=== PATIENT | male | born 1950 | race Caucasian/White ===

== ENCOUNTER 2017-09-14 09:57 | Inpatient (IN) | payer OTHER ==
[~2017-09-14] VITALS: Ht 165.1 cm; Wt 107.0 kg
[~2017-09-14 09:57] MED LIST: ADVAIR DISKU 11 UNIT INH; ALTACE10 M1 PO; ALTACE5 MG PO; AMIODARONE HYD200 MG PO; AMOX-CLAV 875-1 EACH PO; ASPIR 8181 MG PO; CARVEDILOL12.5 MG PO; CRESTOR20 MG PO; FUROSEMIDE40 M1 PO; LASIX20 M1 PO; MASON NATURAL1200 MG PO; METHIMAZOLE5 MG PO; MUCINEX FAST-M177 M3 PO; MULTIVITAMIN1 TAB PO; PREDNISONE10 M2 PO; SPIRONOLACTONE25 MG PO; TAMIFLU 75MG75 MG PO; VALSARTAN80 M1 PO; WELCHOL3.75 GM/Pa PO; ZETIA10 M1 PO; ZITHROMAX250 M2 PO
--- NOTE | 2017-09-14 10:21 | ED DYSPNEA/ASTHMA COMPLAINT ---
History of Present Illness General Chief Complaint: General Adult Stated Complaint: WEAKNESS, HX OF COPD PER PT Source: patient, family, old records Exam Limitations: no limitations Vital Signs & Intake/Output Vital Signs & Intake/Output Vital Signs Date Time Temp Pulse Resp B/P B/P Pulse O2 O2 Flow FiO2 Mean Ox Delivery Rate 09/14 1134 98.4 92 18 116/68 92 Room Air 09/14 1036 94 Room Air 09/14 1002 97.1 70 18 111/74 94 Room Air Allergies Coded Allergies: NO KNOWN ALLERGIES (07/15/12) Reconcile Medications AMIODARONE HCL (Amiodarone Hydrochloride) 200 MG TABLET 1 TAB PO DAILY HEART (Reported) Amoxicillin/Clavulanate Potass (Amox-Clav 875-125 MG Tablet) 1 EACH TABLET 875 MG PO Q12 PNEUMONIA Aspirin (Ecotrin) 81 MG TABLET.DR 1 TAB PO DAILY HEART (Reported) Carvedilol 12.5 MG TABLET 1 TAB PO BID HEART (Reported) Ezetimibe (Zetia) 10 MG TABLET 1 TAB PO DAILY cholesterol (Reported) Fluticasone-Salmeterol (Advair 100-50 Diskus) 100 MCG-50 MCG/DOSE BLST.W.DEV 1 PUF INH BID ASTHMA (Reported) Furosemide (Lasix) 20 MG TABLET 1 TAB PO DAILY FLUID OVERLOAD Please get a repat BEP on 08/30/15, and if renal function is normal Please resume your home dose of 40mg of Lasix. Methimazole 5 MG TABLET 1 TAB PO 2XW THYROID (Reported) Multivitamin (Multiple Vitamins) 1 EACH TABLET 1 TAB PO DAILY SUPPLEMENT ( Reported) OMEGA-3 FATTY ACIDS/FISH OIL (Fish Oil 1,200 MG Softgel) 360 MG-1,200 MG CAPSULE 1 SGL PO TID SUPPLEMENT (Reported) Prednisone 10 MG TABLET 1 TAB PO AD COPD Please take 4 tablets daily on 08/27/15 Please take 3 tablets daily from 08/28/15 through 08/29/15 Please take 2 tablets daily from 08/30/15 through 08/31/15 Please take 1 tablet daily from 09/01/15 through 09/02/15 and then stop Rosuvastatin Calcium (Crestor) 20 MG TABLET 1 TAB PO QPM CHOLESTEROL ( Reported) Spironolactone 25 MG TABLET 1 TAB PO DAILY DIRUETIC (Reported) Valsartan 80 MG TABLET 80 MG PO DAILY HTN (Reported) Triage Note: PT STATES THAT HE HAS HISTORY OF COPD AND THAT HE HAS BEEN FEELING WEAK AND SOB FOR OVER 2 WEEKS, PT IS ON STEROIDS THAT HE STARTED ON SATURDAY, DENIES SOB AT THIS TIME, STATES USUALLY JUST ON EXERTION. ALSO STATES THAT HE WOKE WITH LOW BACK PAIN Triage Nurses Notes Reviewed? yes HPI: Patient went to see his primary care physician earlier this week for increasing shortness of breath and dyspnea on exertion. Patient uses CPAP at night. Patient noticed that he normally sleeps on one pillow however his required 2 pillows. He has had a nonproductive cough as well as anorexia. Patient does have a history of COPD as well as CHF. Patient was started on prednisone but is not feeling any better. He denies any chest pain or palpitations. There is no nausea or vomiting. There are no fevers or chills. Past History Travel History Traveled to [place] past 21 day No Medical History Any Pertinent Medical History? see below for history Neurological: NONE EENT: NONE Cardiovascular: CAD, CHF, hypertension, AICD PACEMAKER HLD Respiratory: asthma, bronchitis, COPD, PNA Gastrointestinal: diverticulitis Hepatic: NONE Renal: NONE Musculoskeletal: NONE Psychiatric: NONE Endocrine: hyperthyroidism Blood Disorders: NONE Cancer(s): NONE History of MRSA: No History of VRE: No History of CDIFF: No Surgical History Surgical History: CABG Psychosocial History Who do you live with Spouse Services at Home None What is your primary language Irish Tobacco Use: Quit >30 days ago ETOH Use: denies use Illicit Drug Use: denies illicit drug use Family History Family History, If Any: MOTHER FH: [place] (myocardial infarction) SISTER FH: [place] (my[place] infarction) Hx Contributory? No Review of Systems Review of Systems Constitutional: Reports: no symptoms. EENTM: Reports: no symptoms. Respiratory: Reports: see HPI, orthopnea, short of breath, wheezing. Cardiovascular: Reports: no symptoms. GI: Reports: see HPI. Genitourinary: Reports: no symptoms. Musculoskeletal: Reports: no symptoms. Skin: Reports: no symptoms. Neurological/Psychological: Reports: no symptoms. Hematologic/Endocrine: Reports: no symptoms. Immunologic/Allergic: Reports: no symptoms. All Other Systems: Reviewed and Negative Physical Exam Physical Exam General Appearance: well developed/nourished, alert, awake, anxious, moderate distress Head: atraumatic, normal appearance Eyes: Bilateral: PERRL, EOMI. Ears, Nose, Throat: normal pharynx, normal ENT inspection, hearing grossly normal Neck: normal inspection, supple, full range of motion, JVD Respiratory: decreased breath sounds, respiratory distress Cardiovascular: regular rate/rhythm, normal peripheral pulses, systolic murmur Gastrointestinal: normal bowel sounds, soft, non-tender Extremities: normal capillary refill, pedal edema Neurologic/Psych: no motor/sensory deficits, awake, alert, oriented x 3, normal mood/affect Skin: intact, normal color, warm/dry Core Measures ACS in differential dx? Yes CVA/TIA Diagnosis No Sepsis Present: No Sepsis Focused Exam Completed? No Progress Differential Diagnosis: AMI, bronchitis, CHF, COPD, pulmonary embolism, pneumonia, pneumothorax Plan of Care: Orders Procedure Date/time Status Heart Healthy Diet 09/14 D Active ED Holding Orders 09/14 1203 Active Admit to inpatient 09/14 1203 Active Vital Signs 09/14 1203 Active Code Status 09/14 1203 Active ARTERIAL BLOOD GAS (GEN) 09/14 1020 Active Telemetry/Vault Mechanic 09/14 1020 Active URINALYSIS 09/14 1020 Complete TROPONIN LEVEL 09/14 1020 Complete COMPREHENSIVE METABOLIC PANEL 09/14 1020 Complete CBC WITHOUT DIFFERENTIAL 09/14 1020 Complete B-TYPE NATRIURETIC PEP (BNP) 09/14 1020 Complete EKG 09/14 1020 Active Current Medications Sig/Marcelo Start time Last Medication Dose Stop Time Status Admin Furosemide 40 MG ONCE ONE 09/14 1215 AC (Lasix) 09/14 1216 Methylprednisolone 125 MG ONCE ONE 09/14 1215 AC (Solu Medrol) 09/14 1216 Laboratory Tests 09/14/17 1129: Urine Color YEL, Urine Clarity CLEAR, Urine pH 6.5, Ur Specific [place] 1.010, Urine Protein NEG, Urine Ketones NEG, Urine Nitrite NEG, Urine Bilirubin NEG, Urine Urobilinogen 1.0, Ur Leukocyte Esterase NEG, Ur Microscopic EXAM NOT REQUIRED, Urine Hemoglobin NEG, Urine Glucose NEG 09/14/17 1026: Anion Gap 14, Estimated GFR > 60, BUN/Creatinine Ratio 32.5 H, Glucose 131 H, Calcium 9.1, Total Bilirubin 1.8 H, AST 34, ALT 50, Alkaline Phosphatase 46, Troponin I 0.08, Rcg-I-[place] Pept 6580 H, Total Protein 7.2, Albumin 4.2, Globulin 3.0, Albumin/Globulin Ratio 1.4, CBC w Diff NO MAN DIFF REQ, RBC 5.16, MCV 75.6 L, MCH 23.8 L, MCHC 31.5 L, RDW 16.1 H, MPV 9.5, Gran % 82.6 H, Lymphocytes % 7.4 L, Monocytes % 9.3, Eosinophils % 0.5, Basophils % 0.2, Absolute Granulocytes 8.5 H, Absolute Lymphocytes 0.8 L, Absolute Monocytes 1.0 H, Absolute Eosinophils 0.1, Absolute Basophils 0 Diagnostic Imaging: Viewed by Me: Radiology Read. Discussed w/RAD: Radiology Read. CXR Impression: PATIENT: ELE HAIR PRESENT AGE: 66 PATIENT ACCOUNT NO: [id number] : 50 LOCATION: [facility] ORDERING PHYSICIAN: James Obando MD SERVICE DATE: 09/14/17 EXAM TYPE: RAD - XRY- PORTABLE CHEST XRAY EXAMINATION: XR PORTABLE CHEST CLINICAL INFORMATION: Shortness of breath. COMPARISON: Chest done on 01/10/2017. TECHNIQUE: Portable 85 degrees upright frontal view of the chest was obtained. FINDINGS: The cardiac mediastinal silhouette is at least moderately enlarged, similar to prior study. There is evidence of pulmonary venous hypertension present. Few ill-defined superimposed patchy airspace disease is also noted best visualized within the right hemithorax, new since prior study, may represent superimposed infiltrate, edema or combination thereof. Possibility of lung nodules cannot be entirely excluded. The AICD device appear intact. There is no pleural effusion present. IMPRESSION: 1. Evidence of pulmonary venous hypertension and at least moderate enlargement of the cardiomediastinal silhouette. 2. Superimposed ill-defined patchy airspace disease is noted best seen within the right hemithorax, may represent edema versus pneumonia or combination thereof. 3. No radiographic evidence of pleural effusion. DICTATED BY: Maria L Hull MD DATE/TIME DICTATED :09/14/171050 FOURTH MATE:KALEN DATE/TIME TRANSCRIBED:09/14/171050 CONFIDENTIAL, DO NOT COPY WITHOUT APPROPRIATE AUTHORIZATION. < Electronically signed in Other Vendor System> SIGNED BY: Maria L Hull MD 09/14/171057 Initial ED EKG: pacemaker rhythm Prior EKG: unchanged Rhythm Strip: PACED Departure Departure Disposition: STILL A PATIENT Condition: Stable Clinical Impression Primary Impression: CHF (congestive heart failure) Secondary Impressions: COPD (chronic obstructive pulmonary disease) Referrals: Mary OWUSU,Ted Gtz (PCP/Family) Departure Forms: Customer Survey General Discharge Information Admission Note Spoke With: Wesley OWUSU,Dina Gtz Documentation of Exam: Documentation of any treatments & extenuating circumstances including Concerns Regarding Discharge (functional status, medication knowledge or non-compliance, living conditions, etc.) that warrant an admission rather than observation: [IV diuresis, IV steroids, telemetry monitoring, serial enzymes, cardiology consultation, pulmonary consultation, CPAP at night.] Critical Care Note Critical Care Note Critical Care Time: non-applicable
[2017-09-14 10:34] LABS: ABSOLUTE BASOPHIL COUNT 0 /CUMM (0.0-0.2); ABSOLUTE EOSINOPHIL COUNT 0.1 /CUMM (0.0-0.7); ABSOLUTE GRANULOCYTE CT 8.5 /CUMM (1.4-6.5); ABSOLUTE LYMPH COUNT 0.8 /CUMM (1.2-3.4); BASOPHIL % 0.2 % (0.0-2.0); EOSINOPHIL % 0.5 % (0-5); GRANULOCYTE % 82.6 % (42.2-75.2); MEAN CORPUSCULAR HGB 23.8 PG (27.0-31.0); MEAN CORPUSCULAR HGB CONC 31.5 G/DL (33.0-37.0); MEAN CORPUSCULAR VOLUME 75.6 FL (80.0-94.0); MEAN PLATELET VOLUME 9.5 FL (7.4-10.4); PLATELET COUNT 173 /CUMM (130-400); RBC DISTRIBUTION WIDTH 16.1 % (11.5-14.5); RED BLOOD CELL CT 5.16 /CUMM (4.70-6.10); WHITE BLOOD CELL COUNT 10.3 /CUMM (4.8-10.8)
--- NOTE | 2017-09-14 10:58 | RADIOLOGY REPORT ---
EXAMINATION: XR PORTABLE CHEST CLINICAL INFORMATION: Shortness of breath. COMPARISON: Chest done on 01/10/2017. TECHNIQUE: Portable 85 degrees upright frontal view of the chest was obtained. FINDINGS: The cardiac mediastinal silhouette is at least moderately enlarged, similar to prior study. There is evidence of pulmonary venous hypertension present. Few ill-defined superimposed patchy airspace disease is also noted best visualized within the right hemithorax, new since prior study, may represent superimposed infiltrate, edema or combination thereof. Possibility of lung nodules cannot be entirely excluded. The AICD device appear intact. There is no pleural effusion present. IMPRESSION: 1. Evidence of pulmonary venous hypertension and at least moderate enlargement of the cardiomediastinal silhouette. 2. Superimposed ill-defined patchy airspace disease is noted best seen within the right hemithorax, may represent edema versus pneumonia or combination thereof. 3. No radiographic evidence of pleural effusion.
--- NOTE | 2017-09-14 12:21 | History & Physical ---
Sylvia OWUSU,[facility] 09/14/17 1211: General Information and HPI MD Statement: I have seen and personally examined ELE HAIR and documented this H&P. The patient is a 66 year old M who presented with a patient stated chief complaint of weakness. Source of Information: patient, family, old records Exam Limitations: no limitations, unable to give history History of Present Illness: Mr Hair is a 66-year-old gentleman with a PMH of CAD s/p CABG, AICD , stent placement, HTN, HLD, asthma, diverticulosis, JOSÉ MIGUEL with nocturnal CPAP, hypothyroidism who presented to the ED this morning complaining of dyspnea. The patient reports that early this week he visited the office of Dr Hernandez (his PCP) and was started on prednisone. He reports over the course of the week, he did not get much relief and subsequently this morning when he woke up, and felt he was "unable to breath". He has also been unable to lay flat. Requires two pillows to sleep at night. He was brought in by his . The patient also reports over the last few days, he felt increasingly weak, and has had a more difficult time climbing stairs. He reports that he finds it difficult to climb the stairs at home. He also complains of lower exteremity edema, more pronounced on the left leg, reports that a doppler of his lower extremity was recently done to rule out a DVT. At the time of our clinical interaction the patient endorsed back pain. Rated at a 7/10 in severity. Described as Sharp. Back pain started one week ago. He also endorses decreased PO intake in an effort to reduce weight. Last evening he had a steak for dinner with canned potatoes. PCP: Dr Hernandez. Hotel Valet Attendant: Dr Ibarra. Was supposed to see Dr Weinstein this week due to COPD. Allergies/Medications Allergies: Coded Allergies: cat dander (SNEEZING, COUGHING, WHEEZING 09/14/17) Home Med list Albuterol Sulfate (Ventolin Hfa) 90 MCG HFA.AER.AD 2 PUF INH AD PRN COPD ( Reported) Amiodarone (Cordarone) 200 MG TAB 1 TAB PO DAILY HEART (Reported) Aspirin (Ecotrin*) 81 MG TABLET.DR 1 TAB PO DAILY HEART/BLOOD (Reported) Carvedilol 12.5 MG TABLET 1 TAB PO BID HEART/BP (Reported) Cholecalciferol (Vitamin D3) (Vitamin D) 1,000 UNIT TABLET 1 TAB PO BID SUPPLEMENT (Reported) Ergocalciferol (Vitamin D2) (Vitamin D2) 50,000 UNIT CAPSULE 1 CAP PO Q2W SUPPLEMENT (Reported) Ezetimibe (Zetia) 10 MG TABLET 1 TAB PO QPM CHOLESTEROL (Reported) Fish Oil/Dha/Epa (Fish Oil 1,200 MG Fish Oil) 1,200 MG-144 MG-216 MG CAPSULE 1 CAP PO TID SUPPLEMENT (Reported) Fluticasone/Salmeterol (Advair 250-50 Diskus) 250 MCG-50 MCG/DOSE BLST.W.DEV 1 PUF INH BID COPD (Reported) Furosemide (Lasix) 40 MG TABLET 1 TAB PO QAM DIURETIC (Reported) Methimazole 10 MG TABLET 0.5 TAB PO QTUES THYROID (Reported) Multivits,Ca,Min/Iron/FA/Lycop (Centrum Men's Tablet) 8 MG IRON-200 MCG-600 MCG TABLET 1 TAB PO DAILY SUPPLEMENT (Reported) Rosuvastatin Calcium (Crestor) 20 MG TABLET 1 TAB PO QPM CHOLESTEROL ( Reported) Sacubitril/Valsartan (Entresto 49 MG-51 MG Tablet) 49 MG-51 MG TABLET 1 TAB PO BID HEART (Reported) Spironolactone (Aldactone) 25 MG TABLET 1 TAB PO QAM DIURETIC (Reported) Tiotropium [place] (Spiriva Respimat) 2.5 MCG/ACTUATION MIST.INHAL 2 PUFF INH QAM COPD (Reported) Compliance With Home Meds: GOOD Past History Travel History Traveled to [place] past 21 day No Medical History Neurological: NONE EENT: NONE Cardiovascular: CAD, CHF, hypertension, AICD PACEMAKER HLD Respiratory: asthma, bronchitis, COPD, PNA Gastrointestinal: diverticulitis Hepatic: NONE Renal: NONE Musculoskeletal: NONE Psychiatric: NONE Endocrine: hyperthyroidism Blood Disorders: NONE Cancer(s): NONE History of MRSA: No History of VRE: No History of CDIFF: No Surgical History Surgical History: CABG Past Family/Social History Family History Relations & Conditions if any MOTHER, . FH: [place] (myocardial infarction) SISTER FH: [place] (myocardial infarction) Psychosocial History Where do you live? Home Who Do You Live With? spouse Services at Home: None Primary Language: Croatian Smoking Status: Former Smoker ETOH Use: occasional use Illicit Drug Use: denies illicit drug use Functional Ability ADLs Independent: dressing, eating, toileting, bathing. Ambulation: independent IADLs Independent: shopping, housework, finances, food prep, telephone, transportation , medication admin. 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 Exam & Diagnostic Data Last 24 Hrs of Vital Signs/I&O Vital Signs Date Time Temp Pulse Resp B/P B/P Pulse O2 O2 Flow FiO2 Mean Ox Delivery Rate 09/14 1134 98.4 92 18 116/68 92 Room Air 09/14 1036 94 Room Air 09/14 1002 97.1 70 18 111/74 94 Room Air Intake & Output 09/14 1600 09/14 0800 09/14 0000 Intake Total 0 Output Total Balance 0 Intake, Oral 0 Patient 105.233 kg Weight Physical Exam General Appearance Oriented X3, Dry mucous membranes Skin No Rashes, Dry Mucous Membranes Skin Temp/Moisture Exam: Warm/Dry Cardiovascular Regular Rate, Normal S1, Normal S2 Lungs Normal Air Movement Abdomen Normal Bowel Sounds, Soft, No Tenderness, Distended Neurological Normal Speech, Strength at 5/5 X4 Ext Extremities Edema 1+ L>R Vascular Normal Pulses Sepsis Peripheral Pulse Location: Dorsalis Pedis Last 24 Hrs of Labs/Davie: Laboratory Tests 09/14/17 1129: Urine Color YEL, Urine Clarity CLEAR, Urine pH 6.5, Ur Specific [place] 1.010, Urine Protein NEG, Urine Ketones NEG, Urine Nitrite NEG, Urine Bilirubin NEG, Urine Urobilinogen 1.0, Ur Leukocyte Esterase NEG, Ur Microscopic EXAM NOT REQUIRED, Urine Hemoglobin NEG, Urine Glucose NEG 09/14/17 1026: Anion Gap 14, Estimated GFR > 60, BUN/Creatinine Ratio 32.5 H, Glucose 131 H, Calcium 9.1, Total Bilirubin 1.8 H, AST 34, ALT 50, Alkaline Phosphatase 46, Troponin I 0.08, Dmv-I-Jbkwvgwsokw Pept 6580 H, Total Protein 7.2, Albumin 4.2, Globulin 3.0, Albumin/Globulin Ratio 1.4, CBC w Diff NO MAN DIFF REQ, RBC 5.16, MCV 75.6 L, MCH 23.8 L, MCHC 31.5 L, RDW 16.1 H, MPV 9.5, Gran % 82.6 H, Lymphocytes % 7.4 L, Monocytes % 9.3, Eosinophils % 0.5, Basophils % 0.2, Absolute Granulocytes 8.5 H, Absolute Lymphocytes 0.8 L, Absolute Monocytes 1.0 H, Absolute Eosinophils 0.1, Absolute Basophils 0 Diagnostic Data EKG Results Paced Rhythm Rate 64 DE 188 QTC 438 CXR Results SERVICE DATE: 09/14/17 EXAM TYPE: RAD - XRY-PORTABLE CHEST XRAY EXAMINATION: XR PORTABLE CHEST CLINICAL INFORMATION: Shortness of breath. COMPARISON: Chest done on 01/10/2017. TECHNIQUE: Portable 85 degrees upright frontal view of the chest was obtained. FINDINGS: The cardiac mediastinal silhouette is at least moderately enlarged, similar to prior study. There is evidence of pulmonary venous hypertension present. Few ill-defined superimposed patchy airspace disease is also noted best visualized within the right hemithorax, new since prior study, may represent superimposed infiltrate, edema or combination thereof. Possibility of lung nodules cannot be entirely excluded. The AICD device appear intact. There is no pleural effusion present. IMPRESSION: 1. Evidence of pulmonary venous hypertension and at least moderate enlargement of the cardiomediastinal silhouette. 2. Superimposed ill-defined patchy airspace disease is noted best seen within the right hemithorax, may represent edema versus pneumonia or combination thereof. 3. No radiographic evidence of pleural effusion. DICTATED BY: Maria L Hull MD Assessment/Plan Assessment: Mr Hair is a 66-year-old gentleman with a PMH of CAD s/p CABG, AICD , stent placement, HTN, HLD, asthma, diverticulosis, JOSÉ MIGUEL with nocturnal CPAP, hypothyroidism who presented to the ED this morning complaining of dyspnea. His dyspnea is likely attributed to exacerbation of COPD. We must however maintain CHF exacerbation in our differential owing to elevated proBNP and an increased amount of salt in his diet. Below is a problem list and plan of care Problem List: #Acute hypoxemic and hypercarbic respiratory failure #COPD/asthma/obstructive sleep apnea with exacerbation #History of VT, on chronic amiodarone therapy #CHF with a low ejection fraction of 25%. #History of hyperthyroidism. #Hyperbilirubinemia #Unilateral Lower Extremity Edema (left) Admit patient to telemetry service. Serial troponins and EKG to rule out ACS. Obtained formal cardiology consultation. Repeat echocardiogram last one on record 2015. Monitor strict daily weights and Input/Output PO Lasix 40 mg Daily IV methylprednisone 40 mg q8 PO Azithromycin Trc Nebs/Incentive Spirometer Consider formal pulmonology consult in am Doppler Lower Extremity r/o DVT Continue Home medications CBC/BEP/T Bili (if remains elevated may consider imaging) in am Pain pathway PT consult Dvt PPX Patient is a full code. As Ranked By This Provider Problem List: 1. Respiratory failure 2. COPD (chronic obstructive pulmonary disease) 3. COPD exacerbation Core Measures/Misc (11/11) Acute Coronary Syndrome ACS Diagnosis: No Congestive Heart Failure Congestive Heart Failure Diagnosis Yes Cerebrovascular Accident CVA/TIA Diagnosis: No VTE (View Protocol) VTE Risk Factors Age>40 No Mechanical VTE Prophylaxis d/t N/A MechProphylax Ordered No VTE Pharm Prophylaxis d/t NA PharmProphylax ordered Sepsis (View protocol) Sepsis Present: No If YES complete Sepsis Event Note If YES complete Sepsis Event Note Resident Review Statement Resident Statement: examined this patient Dina Olson MD 09/14/17 1542: Core Measures/Misc (11/11) Sepsis (View protocol) If YES complete Sepsis Event Note If YES complete Sepsis Event Note Attending MD Review Statement Attending Statement Attending MD Statement: examined this patient, discuss w/resident/PA/STEM ROLLER OPERATOR, agreed w/resident/PA/STEM ROLLER OPERATOR, reviewed EMR data (avail), reviewed images Attending Assessment/Plan: 66-year-old male past medical history of COPD a combined obstructive and restrictive lung disease on PFTs done last year, chronic systolic heart failure with an EF of 20-25% most recently in 2016 and AICD, on Entresto as an outpatient. He is here with shortness of breath. He saw his PCP as an outpatient and was prescribed a course of oral steroids but her shortness of breath and dry cough have not abated. He appears to be having an acute COPD exacerbation with a mild component of acute CHF. We'll bring him into telemetry treat him with IV steroids, short course of oral antibiotics for the possibility of bacterial bronchitis. We'll continue his cardiac regimen he already got IV Lasix in the ER and I think we can see how he does. Will call cardiology to see him, put him on DVT prophylaxis and follow-up
[2017-09-14] MEDS ORDERED: ADVAIR 250-501 EACH INH (12:23)
[2017-09-14] MEDS ORDERED: SPIRIVA RESPIMAT4 GM INH (12:24)
[2017-09-14] MEDS ORDERED: VENTOLIN HFA18 GM INH (12:24)
[2017-09-14] MEDS ORDERED: ENTRESTO 49 MG1 EACH PO (12:25)
[2017-09-14] MEDS ORDERED: VITAMIN D250000 UNIT PO (12:25)
[2017-09-14] MEDS ORDERED: CRESTOR20 M2 PO (12:25)
[2017-09-14] MEDS ORDERED: AMIODARONE HCL200 M1 PO (12:25)
[2017-09-14] MEDS ORDERED: ZETIA10 M1 PO (12:26)
[2017-09-14] MEDS ORDERED: ALDACTONE25 MG PO (12:26)
[2017-09-14] MEDS ORDERED: CARVEDILOL12.5 M1 PO (12:26)
[2017-09-14] MEDS ORDERED: CENTRUM MEN'S1 EACH PO (12:27)
[2017-09-14] MEDS ORDERED: LASIX40 M1 PO (12:27)
[2017-09-14] MEDS ORDERED: METHIMAZOLE10 M1 PO (12:27)
[2017-09-14] MEDS ORDERED: ASPIRIN EC81 M1 PO (12:28)
[2017-09-14] MEDS ORDERED: VITAMIN D1000 UNIT PO (12:29)
[2017-09-14] MEDS ORDERED: FISH OIL 1,2001 EACH PO (12:29)
--- NOTE | 2017-09-14 14:45 | ULTRASOUND REPORT ---
EXAMINATION: US TRIPLEX LOWER EXTREMITY, LEFT CLINICAL INFORMATION: Left lower extremity edema. COMPARISON: None TECHNIQUE: Color-flow triplex imaging with spectral analysis and compression Doppler were performed on the lower extremity. FINDINGS: Respiratory variation, normal compression and augmented flow are noted throughout the lower extremity. The visualized common femoral vein, superficial femoral vein, profunda femoral vein, popliteal vein and midcalf peroneal and posterior tibial venous segments show no evidence of deep venous thrombosis. Evaluation of the calf vein is technically limited due to presence of calf edema. There is no Ratliff's cyst. IMPRESSION: No evidence of deep venous thrombosis involving the left lower extremity.
[2017-09-14 15:07] VITALS: BP 124/96
--- NOTE | 2017-09-14 15:40 | Admission Certification ---
Admission Certification Certification Statement - As attending physician, I certify that at the time of - admission, based on clinical presentation, severity of - symptoms, need for further diagnostic testing and - therapeutic interventions, and risk of adverse outcomes - without in-hospital treatment, in my clinical assessment, - this patient requires an acute hospital stay for a minimum - of two nights or longer. I have also considered psychsocial - factors such as support system, advanced age, financial - issues, cognitive issues, and failed out-patient treatments, - past re-admission history, safety of patient, and lack of - compliance as applicable. Specific rationale supporting this admission is: Patient with acute shortness of breath CHF and COPD exacerbation
--- NOTE | 2017-09-14 19:41 | Cons- Cardiology ---
General Information and HPI Consulting Request Date of Consult: 09/14/17 Requested By: Rogerio OWUSU,Luis Fernando Aguilera Reason for Consult: Positive troponin I. Source of Information: patient, family, old records Exam Limitations: poor historian History of Present Illness: Mr. Noam Hadley is a 66-year-old male with a history of obesity, remote tobacco use, COPD, asthma, obstructive sleep apnea on CPAP, hypertension, dyslipidemia, "borderline" diabetes mellitus, hyperthyroidism, coronary artery disease status post CABG 1998, and LV dysfunction s/p AICD who presented to the ED this a.m. with complaints of progressive shortness of breath, intermittently productive cough, lower extremity weakness and edema (left greater than right), orthopnea, decreased by mouth intake, etc. Symptoms began a month or so ago, but got progressively worse over the past week despite him being placed on prednisone earlier this week by his PCP. He denies any fever, chills, etc. Allergies/Medications Allergies: Coded Allergies: cat dander (SNEEZING, COUGHING, WHEEZING 09/14/17) Home Med List: Albuterol Sulfate (Ventolin Hfa) 90 MCG HFA.AER.AD 2 PUF INH AD PRN COPD ( Reported) Amiodarone (Cordarone) 200 MG TAB 1 TAB PO DAILY HEART (Reported) Aspirin (Ecotrin*) 81 MG TABLET.DR 1 TAB PO DAILY HEART/BLOOD (Reported) Carvedilol 12.5 MG TABLET 1 TAB PO BID HEART/BP (Reported) Cholecalciferol (Vitamin D3) (Vitamin D) 1,000 UNIT TABLET 1 TAB PO BID SUPPLEMENT (Reported) Ergocalciferol (Vitamin D2) (Vitamin D2) 50,000 UNIT CAPSULE 1 CAP PO Q2W SUPPLEMENT (Reported) Ezetimibe (Zetia) 10 MG TABLET 1 TAB PO QPM CHOLESTEROL (Reported) Fish Oil/Dha/Epa (Fish Oil 1,200 MG Fish Oil) 1,200 MG-144 MG-216 MG CAPSULE 1 CAP PO TID SUPPLEMENT (Reported) Fluticasone/Salmeterol (Advair 250-50 Diskus) 250 MCG-50 MCG/DOSE BLST.W.DEV 1 PUF INH BID COPD (Reported) Furosemide (Lasix) 40 MG TABLET 1 TAB PO QAM DIURETIC (Reported) Methimazole 10 MG TABLET 0.5 TAB PO QTUES THYROID (Reported) Multivits,Ca,Min/Iron/FA/Lycop (Centrum Men's Tablet) 8 MG IRON-200 MCG-600 MCG TABLET 1 TAB PO DAILY SUPPLEMENT (Reported) Rosuvastatin Calcium (Crestor) 20 MG TABLET 1 TAB PO QPM CHOLESTEROL ( Reported) Sacubitril/Valsartan (Entresto 49 MG-51 MG Tablet) 49 MG-51 MG TABLET 1 TAB PO BID HEART (Reported) Spironolactone (Aldactone) 25 MG TABLET 1 TAB PO QAM DIURETIC (Reported) Tiotropium [place] (Spiriva Respimat) 2.5 MCG/ACTUATION MIST.INHAL 2 PUFF INH QAM COPD (Reported) Past History Travel History Traveled to [place] past 21 day No Medical History Blood Transfusion Hx: Yes Neurological: NONE EENT: NONE Cardiovascular: CAD, CHF, hypertension, AICD PACEMAKER HLD Respiratory: asthma, bronchitis, COPD, PNA Gastrointestinal: diverticulitis Hepatic: NONE Renal: NONE Musculoskeletal: ARTHRITIS Psychiatric: NONE Endocrine: hyperthyroidism Blood Disorders: NONE Cancer(s): NONE Surgical History Surgical History: CABG Family History Relations & Conditions If Any: MOTHER, . FH: ID (myocardial infarction) SISTER FH: ID (myocardial infarction) Psychosocial History Where Do You Live? Home Who Do You Live With? spouse Services at Home: None Primary Language: Cambodian Smoking Status: Former Smoker ETOH Use: occasional use Illicit Drug Use: denies illicit drug use Functional Ability ADLs Independent: dressing, eating, toileting, bathing. Ambulation: independent IADLs Independent: shopping, housework, finances, food prep, telephone, transportation , medication admin. 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 [employer] Exam & Diagnostic Data Vital Signs and I&O Vital Signs Date Time Temp Pulse Resp B/P B/P Pulse O2 O2 Flow FiO2 Mean Ox Delivery Rate 09/14 1710 Room Air Room Air 09/14 1507 97.8 67 20 124/96 92 Room Air 09/14 1309 97.4 80 18 127/78 91 Room Air 09/14 1134 98.4 92 18 116/68 92 Room Air 09/14 1036 94 Room Air 09/14 1002 97.1 70 18 111/74 94 Room Air Intake & Output 09/14 1600 09/14 0800 09/14 0000 09/13 1600 09/13 0809/13 0000 Intake Total 0 Output Total 275 Balance -275 Intake, Oral 0 Output, Urine 275 Patient 231 lb Weight Weight Bed scale Measurement Method Physical Exam: Well-developed, overweight male in no acute distress. Vital signs: See above. HEENT: Normocephalic, atraumatic, EOMI, slightly dry mucous membranes. Neck: No JVD no bruits. Lungs: Decreased breath sounds. Heart: S1, S2 with a grade 2/6 systolic murmur. No gallop or rub appreciated. Abdomen: Soft, nontender, positive bowel sounds. Extremities: 1+ edema L>R. Diagnostic Data EKG Results 09/14/2017 Properly functioning electronic pacemaker, atrial sensed ventricular paced rhythm. CXR Results 09/14/2017: 1. Evidence of pulmonary venous hypertension and at least moderate enlargement of the cardiomediastinal silhouette. 2. Superimposed ill-defined patchy airspace disease is noted best seen within the right hemithorax, may represent edema versus pneumonia or combination thereof. 3. No radiographic evidence of pleural effusion. Other Results Left lower extremity ultrasound 09/14/2017 No evidence of deep venous thrombosis involving the left lower extremity. Assessment/Plan Assessment/Plan [id number]-o-[id number]-m w/ hx of obesity, remote tob use, COPD, asthma, JOSÉ MIGUEL on CPAP, HTN, HLD , borderline DM, hyperthyroidism, CAD s/p CABG 1998, LV dysfunction, VT s/p AICD who presented to the ED this a.m. w/ c/o progressive SOB, intermittently productive cough, LE weakness and edema (left greater than right), orthopnea, decreased by mouth intake, etc. and evidence of acute hypoxemic hypercapnic respiratory failure 2/2/ COPD, asthma exacerbation w/ a probable component of acute on chronic systolic HF w/ ill-defined patchy airspace disease within right hemithorax on CXR, elevated NT-PRO BNP, high normal WBC count with left shift, elevated BUN/creatinine, etc. He received IV furosemide 40 mg 1 at 12:15 p.m. on 09/14/2017. Recommendations: * Admit to telemetry, follow-up troponins, follow-up ECG in a.m. * Strict inputs/outputs, daily weights, etc. * Echocardiogram to reassess LV systolic/diastolic function, RV function, degree of LVH, valvular regurgitation, PA pressure, etc. * Oxygen/TRC, steroids, antimicrobial therapy, pulmonary consultation. * Continue outpatient cardiac medications. * Follow-up CXR in AM. * Check magnesium, glycosylated hemoglobin A1c, free T4, TSH, etc. * DVT prophylaxis. Consult Acknowledgment - Thank you for your consult request.
[2017-09-14 23:18] VITALS: BP 114/86
[2017-09-15 06:27] VITALS: BP 98/64
--- NOTE | 2017-09-15 08:07 | PN- Att Addend ---
Attending Addendum Attending Brief Note Patient seen and examined. He is feeling markedly better today and is off the oxygen. On exam temperature is 97.7 blood pressure is 98/64 pulse rate of 54 and breathing at 16-18. Awake alert oriented, lungs have decreased breath sounds with very fine crackles, heart is S1-S2 regular with a soft systolic murmur, abdomen is soft and he has 1+ pedal edema left greater than right BUN is up to 45 the rest of the labs are pending. He is a 66-year-old male with COPD, chronic diastolic heart failure with a low EF and an AICD who is here with acute CHF exacerbation and COPD exacerbation. He got 1 dose of IV Lasix yesterday and now we have him on the p.o. Lasix. We have him on the IV steroids as he was on oral steroids given to him by Dr. Hernandez as an outpatient. I will continue the IV steroids today. If he does well and is ambulating without any need for oxygen, we can then switch him to p.o. prednisone. His pressure is on the low side but he is awake alert mentating and making urine and my gut feeling is that given his systolic heart failure, he tends to run a low blood pressure.
[2017-09-15 08:13] LABS: ABSOLUTE BASOPHIL COUNT 0 /CUMM (0.0-0.2); ABSOLUTE EOSINOPHIL COUNT 0 /CUMM (0.0-0.7); ABSOLUTE GRANULOCYTE CT 8.6 /CUMM (1.4-6.5); ABSOLUTE LYMPH COUNT 0.6 /CUMM (1.2-3.4); ABSOLUTE MONOCYTE COUNT 0.3 /CUMM (0.10-0.60); BASOPHIL % 0 % (0.0-2.0); EOSINOPHIL % 0 % (0-5); GRANULOCYTE % 90.8 % (42.2-75.2); HEMATOCRIT 35.8 % (42-52); MEAN CORPUSCULAR HGB 24.2 PG (27.0-31.0); MEAN CORPUSCULAR HGB CONC 32.2 G/DL (33.0-37.0); MEAN CORPUSCULAR VOLUME 75.2 FL (80.0-94.0); RBC DISTRIBUTION WIDTH 16.4 % (11.5-14.5); RED BLOOD CELL CT 4.76 /CUMM (4.70-6.10); WHITE BLOOD CELL COUNT 9.4 /CUMM (4.8-10.8)
--- NOTE | 2017-09-15 08:27 | PN- Housestaff ---
Subjective Follow-up For: Acute hypoxemic and hypercarbic respiratory failure COPD, CHF Subjective: Patient seen resting comfortably in the bed. Complaining of weakness, shortness of breath and orthopnea, as well as unilateral edema of the lower left extremity. Patient also is complaining of back pain, he says is due to newly diagnosed osteoarthritis. Not currently on oxygen. Review of Systems Constitutional: Reports: weakness. Denies: chills, fever. Cardiovascular: Reports: orthopena. Denies: chest pain, palpitations. Respiratory: Reports: orthopnea, short of breath. Denies: cough, wheezing. Gastrointestinal: Denies: abdominal pain, nausea, vomiting. Objective Last 24 Hrs of Vital Signs/I&O Vital Signs Date Time Temp Pulse Resp B/P B/P Pulse O2 O2 Flow FiO2 Mean Ox Delivery Rate 09/15 0627 97.7 54 18 98/64 94 09/15 0619 80 93 09/15 0324 56 95 09/15 0114 56 92 09/15 0000 Room Air 09/14 2318 98.6 63 20 114/86 94 09/14 2139 95 09/14 2038 66 114/80 09/14 1710 Room Air Room Air 09/14 1507 97.8 67 20 124/96 92 Room Air 09/14 1309 97.4 80 18 127/78 91 Room Air 09/14 1134 98.4 92 18 116/68 92 Room Air 09/14 1036 94 Room Air 09/14 1002 97.1 70 18 111/74 94 Room Air Intake & Output 09/15 1600 09/15 0800 09/15 0000 Intake Total 240 490 Output Total 400 300 Balance -160 190 Intake, IV 250 Intake, Oral 240 240 Output, Urine 400 300 Patient 107.048 kg Weight Physical Exam General Appearance: Alert, Oriented X3, Cooperative, No Acute Distress HEENT: Atraumatic, PERRLA, EOMI Neck: Supple, No JVD Cardiovascular: Regular Rate, Normal S1, Normal S2, No Murmurs Lungs: Clear to Auscultation Abdomen: Soft, No Tenderness Current Medications: Current Medications Sig/Marcelo Start time Last Medication Dose Route Stop Time Status Admin Acetaminophen 1,000 MG Q12P PRN 09/14 1900 AC IV Acetaminophen 325 MG Q6P PRN 09/14 1845 AC PO Acetaminophen 650 MG Q4P PRN 09/14 1800 DC 09/14 PO 1805 Acetaminophen 0 .STK-MED ONE 09/14 1404 DC IV Acetaminophen 1,000 MG ONCE ONE 09/14 1400 DC 09/14 IV 09/14 1401 1407 Albuterol Sulfate 3 ML Q4-PRN PRN 09/14 1715 AC INH Albuterol Sulfate 2 PUF Q4-6 PRN PRN 09/14 1645 AC INH Amiodarone HCl 200 MG DAILY 09/15 0900 AC PO Aspirin Buffered 81 MG DAILY 09/14 1253 AC 09/15 PO 0746 Atorvastatin Calcium 80 MG 1700 09/14 1700 AC 09/14 PO 1609 Azithromycin 250 MG Q24H 09/15 1800 AC PO Azithromycin 500 MG ONCE ONE 09/14 1415 DC 09/14 Sodium Chloride 250 ML IV 09/14 1514 1805 Budesonide/ 1 PUF BID 09/14 2100 DC Formoterol Fumarate INH Budesonide/ 2 PUF BID 09/14 2100 AC 09/15 Formoterol Fumarate INH 0746 Carvedilol 12.5 MG BID 09/14 2100 AC 09/14 PO 2038 Cholecalciferol 1,000 IU BID 09/14 2100 AC 09/15 PO 0746 Enoxaparin Sodium 40 MG DAILY@1500 09/14 1530 AC 09/14 SC 1610 Ezetimibe 10 MG QPM 09/14 2100 AC 09/14 PO 2038 Furosemide 40 MG QAM 09/15 0900 AC 09/15 PO 0746 Furosemide 40 MG ONCE ONE 09/14 1215 DC 09/14 IV 09/14 1216 1214 Furosemide 0 .STK-MED ONE 09/14 1207 DC IV Methimazole 5 MG QTUES 09/17 0900 AC PO Methylprednisolone 40 MG Q8 09/14 2200 AC 09/15 IV 0611 Methylprednisolone 125 MG ONCE ONE 09/14 1215 DC 09/14 IV 09/14 1216 1214 Methylprednisolone 0 .STK-MED ONE 09/14 1207 DC .ROUTE Oxycodone/ 1 TAB Q12P PRN 09/14 1900 AC Acetaminophen PO Sacubitril/Valsartan 1 TAB BID 09/14 2100 AC 09/15 PO 0804 Spironolactone 25 MG QAM 09/15 0900 AC PO Tiotropium [place] 1 PUF QAM 09/15 0900 AC 09/15 INH 0747 Last 24 Hrs of Lab/Davie Results Last 24 Hrs of Labs/Mics: Laboratory Tests 09/15/17 0605: Anion Gap 14, Estimated GFR > 60, BUN/Creatinine Ratio 40.9 H, Total Bilirubin 0.9, CBC w Diff Pending, WBC Pending, RBC Pending, Hgb Pending, Hct Pending, MCV Pending, MCH Pending, MCHC Pending, RDW Pending, Plt Count Pending, MPV Pending 09/14/17 2215: Troponin I 0.05 09/14/17 1625: Troponin I 0.07 09/14/17 1129: Urine Color YEL, Urine Clarity CLEAR, Urine pH 6.5, Ur Specific [place] 1.010, Urine Protein NEG, Urine Ketones NEG, Urine Nitrite NEG, Urine Bilirubin NEG, Urine Urobilinogen 1.0, Ur Leukocyte Esterase NEG, Ur Microscopic EXAM NOT REQUIRED, Urine Hemoglobin NEG, Urine Glucose NEG 09/14/17 1026: Anion Gap 14, Estimated GFR > 60, BUN/Creatinine Ratio 32.5 H, Glucose 131 H, Hemoglobin A1c Pending, Calcium 9.1, Magnesium 2.3, Total Bilirubin 1.8 H, AST 34, ALT 50, Alkaline Phosphatase 46, Troponin I 0.08, Rdq-U-Xrybdrqdndh Pept 6580 H, Total Protein 7.2, Albumin 4.2, Globulin 3.0, Albumin/Globulin Ratio 1.4, TSH 4.610 H, Free T4 1.73, CBC w Diff NO MAN DIFF REQ, RBC 5.16, MCV 75.6 L, MCH 23.8 L, MCHC 31.5 L, RDW 16.1 H, MPV 9.5, Gran % 82.6 H, Lymphocytes % 7.4 L, Monocytes % 9.3, Eosinophils % 0.5, Basophils % 0.2, Absolute Granulocytes 8.5 H, Absolute Lymphocytes 0.8 L, Absolute Monocytes 1.0 H, Absolute Eosinophils 0.1, Absolute Basophils 0 Microbiology 09/14 140 LOWER RESP: Respiratory Culture - COLB 09/14 1401 LOWER RESP: Gram Stain - COLB Assessment/Plan Assessment: 66-year-old male with history of COPD and asthma, not on home O2, JOSÉ MIGUEL on overnight CPAP, and cardiac history including CHF, CABG, AICD, stents with hypertension and hyperlipidemia. Presented with chief complaint of weakness, shortness of breath. 1. COPD exacerbation --Spiriva daily --Proventil q4 prn --Ventolin 2 puff prn --Methylprednisone 40mg IV q8, switch to PO steroid once saturations improve with ambulation 2. Acute CHF exacerbation --PO Lasix --Spironolactone 25mg po daily --Entresto BID --Carvedilol 12.5mg BID Problem List: 1. COPD (chronic obstructive pulmonary disease) 2. CHF (congestive heart failure) 3. COPD exacerbation 4. Hyperlipidemia 5. Acute respiratory failure with hypoxia and hypercarbia Pain Ratin Pain Location: back Pain Goal: Pain 4 or less Pain Plan: per pathway Tomorrow's Labs & Rationales: BEP & Mg
[2017-09-15 09:04] LABS: PLATELET COUNT 159 /CUMM (130-400)
[2017-09-15 14:43] VITALS: BP 98/56
--- NOTE | 2017-09-15 16:32 | PN- Cardiology ---
Subjective Subjective: No complaints and feels improved. Objective Vital Signs and I&Os Vital Signs Date Time Temp Pulse Resp B/P B/P Pulse O2 O2 Flow FiO2 Mean Ox Delivery Rate 09/15 1443 97.4 62 20 98/56 95 Room Air 09/15 1301 60 102/54 09/15 1136 92 Room Air Room Air 09/15 0627 97.7 54 18 98/64 94 09/15 0619 80 93 09/15 0324 56 95 09/15 0114 56 92 09/15 0000 Room Air 09/14 2318 98.6 63 20 114/86 94 09/14 2139 95 09/14 2038 66 114/80 09/14 1710 Room Air Room Air Intake & Output 09/15 1600 09/15 0800 09/15 0000 09/14 1600 09/14 0809/14 0000 Intake Total 420 240 740 0 Output Total 750 400 300 275 Balance -330 -160 440 -275 Intake, IV 20 500 Intake, Oral 400 240 240 0 Output, Urine 750 400 300 275 Patient 236 lb 231 lb Weight Weight Bed scale Measurement Method Physical Exam: Well-developed, overweight male in no acute distress. Vital signs: See above. HEENT: Normocephalic, atraumatic, EOMI, slightly dry mucous membranes. Neck: No JVD no bruits. Lungs: Decreased breath sounds. Heart: S1, S2 with a grade 2/6 systolic murmur. No gallop or rub appreciated. Abdomen: Soft, nontender, positive bowel sounds. Extremities: 1+ edema L>R. Current Medications: Current Medications Sig/Marcelo Start time Last Medication Dose Route Stop Time Status Admin Acetaminophen 1,000 MG Q12P PRN 09/14 1900 AC IV Acetaminophen 325 MG Q6P PRN 09/14 1845 AC PO Acetaminophen 650 MG Q4P PRN 09/14 1800 DC 09/14 PO 1805 Albuterol Sulfate 3 ML Q4-PRN PRN 09/14 171 AC INH Albuterol Sulfate 2 PUF Q4-6 PRN PRN 09/14 1645 AC INH Amiodarone HCl 200 MG 5PM 09/15 1700 AC PO Amiodarone HCl 200 MG DAILY 09/15 0900 DC PO Aspirin Buffered 81 MG DAILY 09/14 1253 AC 09/15 PO 0746 Atorvastatin Calcium 80 MG 1700 09/14 1700 AC 09/14 PO 1609 Azithromycin 250 MG Q24H 09/15 1800 AC PO Budesonide/ 1 PUF BID 09/14 2100 DC Formoterol Fumarate INH Budesonide/ 2 PUF BID 09/14 2100 AC 09/15 Formoterol Fumarate INH 0746 Carvedilol 12.5 MG BID 09/14 2100 AC 09/15 PO 1301 Cholecalciferol 1,000 IU BID 09/14 2100 AC 09/15 PO 0746 Enoxaparin Sodium 40 MG DAILY@1600 09/15 1600 AC 09/15 SC 1559 Enoxaparin Sodium 40 MG DAILY@1500 09/14 1530 DC 09/14 SC 1610 Ezetimibe 10 MG QPM 09/14 2100 AC 09/14 PO 2038 Furosemide 40 MG QAM 09/15 0900 AC 09/15 PO 0746 Methimazole 5 MG QTUES 09/17 0900 AC PO Methylprednisolone 40 MG Q8 09/14 2200 AC 09/15 IV 1301 Oxycodone/ 1 TAB Q12P PRN 09/14 1900 AC 09/15 Acetaminophen PO 1516 Sacubitril/Valsartan 1 TAB BID 09/14 2100 AC 09/15 PO 0804 Spironolactone 25 MG QAM 09/15 0900 AC 09/15 PO 1152 Tiotropium [place] 1 PUF QAM 09/15 0900 AC 09/15 INH 0747 Assessment/Plan Assessment/Plan 66-y-o-w-m w/ hx of obesity, remote tob use, COPD, asthma, JOSÉ MIGUEL on CPAP, HTN, HLD , borderline DM, hyperthyroidism, CAD s/p CABG 1998, LV dysfunction, [place] s/p AICD who presented to the ED on 09/14/2017 a.m. w/ c/o progressive SOB, intermittently productive cough, LE weakness and edema (left greater than right) , orthopnea, decreased by mouth intake, etc. & evidence of acute hypoxemic hypercapnic resp failure 2/2/ COPD, asthma exacerbation w/ a probable component of acute on chronic systolic HF w/ ill-defined patchy airspace disease w/i R hemithorax on CXR, elevated NT-PRO BNP, high normal WBC count w/ L shift, elevated BUN/creat, "negative" troponins, etc. Recommendations: * Continue on telemetry. * Strict inputs/outputs, daily weights, etc. * Follow-up on echocardiogram to reassess LV systolic/diastolic function, RV function, degree of LVH, valvular regurgitation, PA pressure, etc. * Oxygen/TRC, steroids, antimicrobial therapy, pulmonary consultation. * Continue outpatient cardiac medications. * Repeat CXR in AM. * DVT prophylaxis. Continue telemetry? Yes
--- NOTE | 2017-09-15 20:32 | RADIOLOGY REPORT ---
EXAMINATION: XR CHEST CLINICAL INFORMATION: Shortness of breath. COMPARISON: Chest x-ray 09/14/2017 TECHNIQUE: 2 views of the chest were obtained. FINDINGS: Heart size is enlarged. No change position of pacemaker leads in right atrium, right ventricle coronary sinus. Status post median sternotomy. There is no acute abnormality. Linear scar or subsegmental atelectasis present at the left lung base. The lungs are otherwise clear. There is no pleural effusion. There is no pulmonary vascular congestion. There is multilevel degenerative spondylosis of the dorsal spine. IMPRESSION: No acute abnormality of the chest.
[2017-09-15 21:55] VITALS: BP 104/58
[2017-09-16 06:49] VITALS: BP 104/58
--- NOTE | 2017-09-16 07:08 | PN- Housestaff ---
Vivek Banda 09/16/17 0708: Subjective Follow-up For: Acute hypoxemic and hypercarbic respiratory failure COPD CHF-systolic dysfunction Tele-Events Since Last Visit: Dual-chamber pacing, 60, 0.12 Subjective: Patient seen and examined at bedside this morning. Claims that he feels much better this morning. Patient was breathing on room air this morning saturating well at 95%. He denied any chest pain, palpitations, shortness of breath. Claims that he has not had a bowel movement in 3 days. Will give a bowel regimen and follow-up. Says he has continuous lower left extremity edema. Has been ruled out for DVT. Review of Systems Constitutional: Denies: see HPI. Objective Last 24 Hrs of Vital Signs/I&O Vital Signs Date Time Temp Pulse Resp B/P B/P Pulse O2 O2 Flow FiO2 Mean Ox Delivery Rate 09/16 0756 104/58 09/16 0649 97.5 57 20 104/58 95 09/16 0000 CPAP 09/15 2155 98.0 62 20 104/58 93 Room Air 09/15 2133 62 104/59 09/15 1712 60 108/60 09/15 1443 97.4 62 20 98/56 95 Room Air 09/15 1301 60 102/54 09/15 1136 92 Room Air Room Air Intake & Output 09/16 1600 09/16 0800 09/16 0000 Intake Total 10 890 Output Total 800 100 Balance -790 790 Intake, IV 10 10 Intake, Oral 880 Number 0 Bowel Movements Output, Urine 800 100 Patient 236 lb Weight Physical Exam General Appearance: Alert, Oriented X3, Cooperative, No Acute Distress HEENT: PERRLA, EOMI, Mucous Membr. moist/pink Cardiovascular: Normal S1, Normal S2, AICD placed Lungs: Clear to Auscultation, Normal Air Movement Neurological: Normal Speech, Strength at 5/5 X4 Ext, Sensation Intact, Cranial Nerves 3-12 NL Extremities: Left lower extremity edema +2 pitting Vascular: Normal Pulses, Pulses Symmetrical Current Medications: Current Medications Sig/Marcelo Start time Last Medication Dose Route Stop Time Status Admin Acetaminophen 650 MG Q4P PRN 09/16 1115 AC PO Acetaminophen 325 MG ONCE ONE 09/16 1015 DC 09/16 PO 09/16 1016 1022 Acetaminophen 1,000 MG Q12P PRN 09/14 1900 AC IV Acetaminophen 325 MG Q6P PRN 09/14 1845 AC 09/16 PO 0930 Albuterol Sulfate 3 ML Q4-PRN PRN 09/14 1715 AC INH Albuterol Sulfate 2 PUF Q4-6 PRN PRN 09/14 1645 AC INH Amiodarone HCl 200 MG 5PM 09/15 1700 AC 09/15 PO 1712 Amiodarone HCl 200 MG DAILY 09/15 0900 DC PO Aspirin Buffered 81 MG DAILY 09/14 1253 AC 09/16 PO 0756 Atorvastatin Calcium 80 MG 1700 09/14 1700 AC 09/15 PO 1712 Azithromycin 250 MG Q24H 09/15 1800 AC 09/15 PO 1712 Budesonide/ 2 PUF BID 09/14 2100 AC 09/16 Formoterol Fumarate INH 0757 Carvedilol 12.5 MG BID 09/14 2100 AC 09/16 PO 0756 Cholecalciferol 1,000 IU BID 09/14 2100 AC 09/16 PO 0756 Enoxaparin Sodium 40 MG DAILY@1600 09/15 1600 AC 09/15 SC 1559 Enoxaparin Sodium 40 MG DAILY@1500 09/14 1530 DC 09/14 SC 1610 Ezetimibe 10 MG QPM 09/14 2100 AC 09/15 PO 2134 Furosemide 40 MG QAM 09/15 0900 AC 09/16 PO 0756 Methimazole 5 MG QTUES 09/17 0900 AC PO Methylprednisolone 40 MG Q12H 09/16 1800 AC IV Methylprednisolone 40 MG Q8 09/14 2200 DC 09/16 IV 0530 Oxycodone/ 1 TAB Q12P PRN 09/14 1900 AC 09/16 Acetaminophen PO 1110 Polyethylene Glycol 17 GM DAILY PRN 09/16 0900 AC 09/16 PO 0915 Sacubitril/Valsartan 1 TAB BID 09/14 2100 AC 09/16 PO 0756 Senna/Docusate Sodium 2 TAB DAILY PRN 09/16 0900 AC 09/16 PO 0919 Spironolactone 25 MG QAM 09/15 0900 AC 09/16 PO 0756 Tiotropium [place] 1 PUF QAM 09/15 0900 AC 09/16 INH 0757 Last 24 Hrs of Lab/Davie Results Last 24 Hrs of Labs/Mics: Laboratory Tests 09/16/17 0702: Anion Gap 11, Estimated GFR > 60, BUN/Creatinine Ratio 40.0 H, Magnesium 2.6 H Assessment/Plan Assessment: Patient is 66-year-old male past medical history of COPD and asthma coronary disease status post CABG 1998, AICD, stent placement, hypertension, hyperlipidemia, diverticulosis, JOSÉ MIGUEL ON nocturnal CPAP, hypothyroidism presented to the ED on 09/14/17 complaining of shortness of breath. Patient had a course of prednisone from his primary care doctor Dr. gil. On morning of admission patient did not feel much relief and was unable to breathe. Patient unable to lay flat requiring 2 pillows at night to sleep. Patient presented with difficulty with climbing stairs at home. Vital signs stable on admission. Paced rhythm on EKG. Chest x-ray in the ED was negative for any pleural effusions. Elevated Pro BNP, high normal WBC count with left shift, elevated BUN /cr, negative troponins. Problem list: 1. COPD exacerbation. Patient stated today that he lives at home alone in a mobile home is about 8 birds. Concern about exposure to dander/feces. Will follow up with measurement supervisor. * Switched to oral prednisone 40mg today. We will continue to monitor patient off oxygen. * Pulmonology consulted. Appreciate Dr. Weinstein consultation. * Continue current pulmonary regimen. Monitor patient off oxygen. * Patient on day 2 of Zithromax 250 mg 2. Acute CHF exacerbation * P.o. Lasix 40 mg * Spironolactone 25 mg p.o. daily * Monitor ins and outs * Carvedilol 12.5 mg twice daily 3. Hyperthyroidism * Continue patient's home medication methimazole 5 mg p.o. Code Status: Full code DVT PPx: Lovenox 40 mg Diet: Heart healthy diet Problem List: 1. COPD exacerbation 2. CHF (congestive heart failure) Pain Ratin Pain Location: denies pain Pain Goal: Remain pain free Pain Plan: As per pain pathway Tomorrow's Labs & Rationales: cbc bep DVT/Prophylaxis: mechanical, pharmacological Gina Wang 09/16/17 1233: Attending MD Review Statement Attending Statement Attending MD Statement: examined this patient, discuss w/resident/PA/IMPROVEMENT COORDINATOR, agreed w/resident/PA/IMPROVEMENT COORDINATOR, reviewed EMR data (avail), discussed with nursing, discussed with case mgmt Attending Assessment/Plan: Acute COPD exacerbation- decrease steroids to q12h and d/w dr weinstein. she is going to see the patient. Pt has birds at home and lives with his . H/o CHF - on exam has LE edema, worse on left lower extermity. pt currently on home dose lasix. probnp was high on admission . Will get cardio consult , pt f/u with Dr Beatty. doppler was negative. will get cardio consult. d/w pt the care plan.
--- NOTE | 2017-09-16 10:47 | Cons- Pulmonary ---
General Information and HPI Consulting Request Date of Consult: 09/16/17 Requested By: Dr. Wang Reason for Consult: COPD management Source of Information: patient, family, old records Exam Limitations: no limitations History of Present Illness: The patient is a 66-year-old male well-known to me from previous hospitalizations and outpatient visits. The patient is accompanied a past medical history including CAD status post CABG, CHF with an EF of 20-25%, AICD placement, cardiac stents, hypertension, hyperlipidemia, hypothyroidism, morbid obesity, obstructive lung disease, restrictive lung disease, and severe obstructive sleep apnea. The patient was admitted on 09/14/2017 with complaints of increased weakness in association with worsening dyspnea on exertion. The patient was unable to lay flat and was sleeping on 2 pillows at night. He also had more pronounced left lower extremity swelling and erythema however this is improved and now back to baseline. The patient has had poor oral intake as well. The patient was seen by his primary care physician and given a short course of oral steroids without improvement. The patient was admitted to telemetry, treated with IV steroids, oral antibiotics, and received IV Lasix. He currently denies any fever, chills, chest pain, sputum production or wheezing. He has ongoing shortness of breath which is chronic for him. Overall he is feeling markedly improved and denies any new complaints at present. Chest x-ray from 09/15/2017 shows no acute abnormality in the chest. There was a left lung linear scar but the lungs are otherwise clear. The patient's oxygen saturation is currently 95% on room air. Allergies/Medications Allergies: Coded Allergies: cat dander (SNEEZING, COUGHING, WHEEZING 09/14/17) Home Med List: Albuterol Sulfate (Ventolin Hfa) 90 MCG HFA.AER.AD 2 PUF INH AD PRN COPD ( Reported) Amiodarone (Cordarone) 200 MG TAB 1 TAB PO DAILY HEART (Reported) Aspirin (Ecotrin*) 81 MG TABLET.DR 1 TAB PO DAILY HEART/BLOOD (Reported) Carvedilol 12.5 MG TABLET 1 TAB PO BID HEART/BP (Reported) Cholecalciferol (Vitamin D3) (Vitamin D) 1,000 UNIT TABLET 1 TAB PO BID SUPPLEMENT (Reported) Ergocalciferol (Vitamin D2) (Vitamin D2) 50,000 UNIT CAPSULE 1 CAP PO Q2W SUPPLEMENT (Reported) Ezetimibe (Zetia) 10 MG TABLET 1 TAB PO QPM CHOLESTEROL (Reported) Fish Oil/Dha/Epa (Fish Oil 1,200 MG Fish Oil) 1,200 MG-144 MG-216 MG CAPSULE 1 CAP PO TID SUPPLEMENT (Reported) Fluticasone/Salmeterol (Advair 250-50 Diskus) 250 MCG-50 MCG/DOSE BLST.W.DEV 1 PUF INH BID COPD (Reported) Furosemide (Lasix) 40 MG TABLET 1 TAB PO QAM DIURETIC (Reported) Methimazole 10 MG TABLET 0.5 TAB PO QTUES THYROID (Reported) Multivits,Ca,Min/Iron/FA/Lycop (Centrum Men's Tablet) 8 MG IRON-200 MCG-600 MCG TABLET 1 TAB PO DAILY SUPPLEMENT (Reported) Rosuvastatin Calcium (Crestor) 20 MG TABLET 1 TAB PO QPM CHOLESTEROL ( Reported) Sacubitril/Valsartan (Entresto 49 MG-51 MG Tablet) 49 MG-51 MG TABLET 1 TAB PO BID HEART (Reported) Spironolactone (Aldactone) 25 MG TABLET 1 TAB PO QAM DIURETIC (Reported) Tiotropium [place] (Spiriva Respimat) 2.5 MCG/ACTUATION MIST.INHAL 2 PUFF INH QAM COPD (Reported) Current Medications: Current Medications Sig/Marcelo Start time Last Medication Dose Route Stop Time Status Admin Acetaminophen 325 MG ONCE ONE 09/16 1015 DC 09/16 PO 09/16 1016 1022 Acetaminophen 1,000 MG Q12P PRN 09/14 1900 AC IV Acetaminophen 325 MG Q6P PRN 09/14 1845 AC 09/16 PO 0930 Albuterol Sulfate 3 ML Q4-PRN PRN 09/14 1715 AC INH Albuterol Sulfate 2 PUF Q4-6 PRN PRN 09/14 1645 AC INH Amiodarone HCl 200 MG 5PM 09/15 1700 AC 09/15 PO 1712 Amiodarone HCl 200 MG DAILY 09/15 0900 DC PO Aspirin Buffered 81 MG DAILY 09/14 1253 AC 09/16 PO 0756 Atorvastatin Calcium 80 MG 1700 09/14 1700 AC 09/15 PO 1712 Azithromycin 250 MG Q24H 09/15 1800 AC 09/15 PO 1712 Budesonide/ 2 PUF BID 09/14 2100 AC 09/16 Formoterol Fumarate INH 0757 Carvedilol 12.5 MG BID 09/14 2100 AC 09/16 PO 0756 Cholecalciferol 1,000 IU BID 09/14 2100 AC 09/16 PO 0756 Enoxaparin Sodium 40 MG DAILY@1600 09/15 1600 AC 09/15 SC 1559 Enoxaparin Sodium 40 MG DAILY@1500 09/14 1530 DC 09/14 SC 1610 Ezetimibe 10 MG QPM 09/14 2100 AC 09/15 PO 2134 Furosemide 40 MG QAM 09/15 0900 AC 09/16 PO 0756 Methimazole 5 MG QTUES 09/17 0900 AC PO Methylprednisolone 40 MG Q12H 09/16 1800 AC IV Methylprednisolone 40 MG Q8 09/14 2200 DC 09/16 IV 0530 Oxycodone/ 1 TAB Q12P PRN 09/14 1900 AC 09/15 Acetaminophen PO 1516 Polyethylene Glycol 17 GM DAILY PRN 09/16 0900 AC 09/16 PO 0915 Sacubitril/Valsartan 1 TAB BID 09/14 2100 AC 09/16 PO 0756 Senna/Docusate Sodium 2 TAB DAILY PRN 09/16 0900 AC 09/16 PO 0919 Spironolactone 25 MG QAM 09/15 0900 AC 09/16 PO 0756 Tiotropium [place] 1 PUF QAM 09/15 0900 AC 09/16 INH 0757 Past History Travel History Traveled to [place] past 21 day No Medical History Blood Transfusion Hx: Yes Neurological: NONE EENT: NONE Cardiovascular: CAD, CHF, hypertension, AICD PACEMAKER HLD Respiratory: asthma, bronchitis, COPD, PNA Gastrointestinal: diverticulitis Hepatic: NONE Renal: NONE Musculoskeletal: ARTHRITIS Psychiatric: NONE Endocrine: hyperthyroidism Blood Disorders: NONE Cancer(s): NONE Surgical History Surgical History: CABG Family History Relations & Conditions If Any: MOTHER, . FH: PR (myocardial infarction) SISTER FH: [place] (myocardial infarction) Psychosocial History Where Do You Live? Home Who Do You Live With? spouse Services at Home: None Primary Language: Puerto Rican Smoking Status: Former Smoker ETOH Use: occasional use Illicit Drug Use: denies illicit drug use Functional Ability ADLs Independent: dressing, eating, toileting, bathing. Ambulation: independent IADLs Independent: shopping, housework, finances, food prep, telephone, transportation , medication admin. 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 [employer] Exam & Diagnostic Data Last 24 Hrs of Vital Signs/I&O Vital Signs Date Time Temp Pulse Resp B/P B/P Pulse O2 O2 Flow FiO2 Mean Ox Delivery Rate 09/16 0756 104/58 09/16 0649 97.5 57 20 104/58 95 09/16 0000 CPAP 09/15 2155 98.0 62 20 104/58 93 Room Air 09/15 2133 62 104/59 09/15 1712 60 108/60 09/15 1443 97.4 62 20 98/56 95 Room Air 09/15 1301 60 102/54 09/15 1136 92 Room Air Room Air Intake & Output 09/16 1600 09/16 0800 09/16 0000 Intake Total 10 890 Output Total 800 100 Balance -790 790 Intake, IV 10 10 Intake, Oral 880 Number 0 Bowel Movements Output, Urine 800 100 Patient 236 lb Weight Last 48 Hrs of Labs/Davie: Laboratory Tests 09/16/17 0702: Anion Gap 11, Estimated GFR > 60, BUN/Creatinine Ratio 40.0 H, Magnesium 2.6 H 09/15/17 0605: Anion Gap 14, Estimated GFR > 60, BUN/Creatinine Ratio 40.9 H, Total Bilirubin 0.9, CBC w Diff NO MAN DIFF REQ, RBC 4.76, MCV 75.2 L, MCH 24.2 L, MCHC 32.2 L, RDW 16.4 H, MPV 11.0 H, Gran % 90.8 H, Lymphocytes % 5.9 L, Monocytes % 3.3, Eosinophils % 0, Basophils % 0, Absolute Granulocytes 8.6 H, Absolute Lymphocytes 0.6 L, Absolute Monocytes 0.3, Absolute Eosinophils 0, Absolute Basophils 0 09/14/17 2215: Troponin I 0.05 09/14/17 1625: Troponin I 0.07 09/14/17 1129: Urine Color YEL, Urine Clarity CLEAR, Urine pH 6.5, Ur Specific [place] 1.010, Urine Protein NEG, Urine Ketones NEG, Urine Nitrite NEG, Urine Bilirubin NEG, Urine Urobilinogen 1.0, Ur Leukocyte Esterase NEG, Ur Microscopic EXAM NOT REQUIRED, Urine Hemoglobin NEG, Urine Glucose NEG Assessment/Plan Impression/Plan: 1. AECOPD - patient is feeling much improved since admission. PFTs from 11/28/17 showed the following: The subdivisions of lung volume show a decreased TLC, FVC. FRC is normal. RV is increased. FEV1, QLM30-82 and FEV1/ FVC ratio are reduced. There is significant improvement in FEF25- 75 following bronchodilators. Diffusing capacity uncorrected for hemoglobin is reduced. Room air oximetry is normal. There is no significant desaturation with ambulation. IMPRESSION: Combined restrictive and obstructive ventilatory defect with a partially reversible component. 2. Chronic restrictive and obstructive lung disease. Amiodarone toxicity has been considered however the patient has not had any significant deterioration in his lung function over time nor has he had any evidence of interstitial lung disease on serial CAT scans. He is being monitored on a yearly basis. 3. Severe obstructive sleep apnea, on nocturnal Bipap 17/13 cm H20. 4. Chronic systolic congestive heart failure. Recommendations: * Change to prednisone 40 mg daily. * Complete 5 days of azithromycin. * Continue nebs/total respiratory care. * Continue Spiriva 1 inhalation every morning. * Continue Symbicort 2 puffs every 12 hours. * Incentive spirometry. * Increased activity/ambulate. * Check oxygen saturations with ambulation. * Follow-up cardiology recommendations and echocardiogram results. * Continue all supportive care. * Thank you for the consult. I will follow the patient along with you provide further recommendations. As always if you have any comments or questions please not hesitate contact me at any time. Consult Acknowledgment - Thank you for your consult request.
--- NOTE | 2017-09-16 12:30 | ECHOCARDIOGRAM REPORT ---
ELE HAIR Age: 66 : 1950 Gender: M Exam Date: 09/14/2017 13:20 Exam Location: ER Ht (in): 66 Wt (lb): 232 BSA: 2.26 BP: 116 / 68 Ordering Physician: Shira Ward MD Referring Physician: Luis Fernando Olson MD Technologist: Jessica Sparrow [facility] Room Number: 8 Indications: Rhythm: Technical Quality: Technically difficult study FINDINGS Left Ventricle Moderate left ventricular dilatation. Left ventricle not well visualized. Severely reduced global left ventricular systolic function. Left ventricular ejection fraction is estimated at 25-30 %. Right Ventricle Normal right ventricular size and function. Catheter/pacemaker wire in the right ventricular cavity. Right Atrium Normal right atrial size. Left Atrium Severe left atrial dilatation. Mitral Valve Mild mitral regurgitation. Aortic Valve Diffuse thickening (sclerosis) of the aortic valve cusps without reduced excursion. No aortic stenosis. Tricuspid Valve Mild tricuspid regurgitation. Right ventricular systolic pressure estimated to be elevated at 58 mmHg. Pulmonic Valve Pulmonic valve not well visualized. Mild pulmonic regurgitation. Pericardium No pericardial effusion. Great Vessels Normal size aortic root. CONCLUSIONS Moderate left ventricular dilatation. Left ventricle not well visualized. Severely reduced global left ventricular systolic function. Left ventricular ejection fraction is estimated at 25-30 %. Normal right ventricular size and function. Catheter/pacemaker wire in the right ventricular cavity. Severe left atrial dilatation. Diffuse thickening (sclerosis) of the aortic valve cusps without reduced excursion. No aortic stenosis. Right ventricular systolic pressure estimated to be elevated at [address] Juan Flores (Electronically Signed) Final Date: 16 September 2017 12:28 MEASUREMENTS (Male / Female) Normal Values 2D ECHO LV Diastolic Diameter PLAX 6.4 cm 4.2 - 5.9 / 3.9 - 5.3 cm LV Systolic Diameter PLAX 5.5 cm 2.1 - 4.0 cm LV Fractional Shortening PLAX 14.1 % 25 - 46 % LV Ejection Fraction 2D Teich 29.3 % IVS Diastolic Thickness 1.0 cm LVPW Diastolic Thickness 1.2 cm LV Relative Wall Thickness 0.3 LVOT Diameter 2.0 cm Aortic Root Diameter 2.9 cm LA Systolic Diameter LX 5.3 cm 3.0 - 4.0 / 2.7 - 3.8 cm LA Volume 148.0 cm 18 - 58 / 22 - 52 cm DOPPLER AV Peak Velocity 165.0 cm/s AV Peak Gradient 10.9 mmHg LVOT Peak Velocity 70.6 cm/s LVOT Peak Gradient 2.0 mmHg AV Area Cont Eq pk 1.3 cm Mitral E Point Velocity 118.0 cm/s Mitral A Point Velocity 32.6 cm/s Mitral E to A Ratio 3.6 MV Deceleration Time 444.0 ms TR Peak Velocity 380.0 cm/s TR Peak Gradient 57.8 mmHg PV Peak Velocity 78.7 cm/s PV Peak Gradient 2.5 mmHg LV E' Lateral Velocity 6.4 cm/s Mitral E to LV E' Lateral Ratio 18.4 LV E' Septal Velocity 6.2 cm/s Mitral E to LV E' Septal Ratio 18.9
--- NOTE | 2017-09-16 12:46 | PN- Cardiology ---
See Addendum Subjective Subjective: Patient seen at bedside. Patient reports he is significantly improved from admission. Patient denies dyspnea at rest, denies chest pain, palpitations, PND /orthopnea. Patient has been able to ambulate in the azar without dyspnea. Objective Vital Signs and I&Os Vital Signs Date Time Temp Pulse Resp B/P B/P Pulse O2 O2 Flow FiO2 Mean Ox Delivery Rate 09/16 0810 95 Room Air 09/16 0800 95 09/16 0756 104/58 09/16 0649 97.5 57 20 104/58 95 09/16 0000 CPAP 09/15 2155 98.0 62 20 104/58 93 Room Air 09/15 2133 62 104/59 09/15 1712 60 108/60 09/15 1443 97.4 62 20 98/56 95 Room Air 09/15 1301 60 102/54 Intake & Output 09/16 1600 09/16 0800 09/16 0000 09/15 1600 09/15 0800 09/15 0000 Intake Total 10 890 420 240 740 Output Total 800 100 750 400 300 Balance -790 790 -330 -160 440 Intake, IV 10 10 20 500 Intake, Oral 880 400 240 240 Number 0 Bowel Movements Output, Urine 800 100 750 400 300 Patient 107.048 kg 107.048 kg Weight Physical Exam: General: no apparent distress HEENT: NCAT, NO JVD Heart: s1s2, RRR, +2/6 systolic murmur heard best RUSB Lungs: CTA b/l Abd: soft, nt Ext: no peripheral edema Current Medications: Current Medications Sig/Marcelo Start time Last Medication Dose Route Stop Time Status Admin Acetaminophen 650 MG Q4P PRN 09/16 1115 AC PO Acetaminophen 325 MG ONCE ONE 09/16 1015 DC 09/16 PO 09/16 1016 1022 Acetaminophen 1,000 MG Q12P PRN 09/14 1900 AC IV Acetaminophen 325 MG Q6P PRN 09/14 1845 AC 09/16 PO 0930 Albuterol Sulfate 3 ML Q4-PRN PRN 09/14 171 AC INH Albuterol Sulfate 2 PUF Q4-6 PRN PRN 09/14 1645 AC INH Amiodarone HCl 200 MG 5PM 09/15 1700 AC 09/15 PO 1712 Amiodarone HCl 200 MG DAILY 09/15 0900 DC PO Aspirin Buffered 81 MG DAILY 09/14 1253 AC 09/16 PO 0756 Atorvastatin Calcium 80 MG 1700 09/14 1700 AC 09/15 PO 1712 Azithromycin 250 MG Q24H 09/15 1800 AC 09/15 PO 1712 Budesonide/ 2 PUF BID 09/14 2100 AC 09/16 Formoterol Fumarate INH 0757 Carvedilol 12.5 MG BID 09/14 2100 AC 09/16 PO 0756 Cholecalciferol 1,000 IU BID 09/14 2100 AC 09/16 PO 0756 Enoxaparin Sodium 40 MG DAILY@1600 09/15 1600 AC 09/15 SC 1559 Enoxaparin Sodium 40 MG DAILY@1500 09/14 1530 DC 09/14 SC 1610 Ezetimibe 10 MG QPM 09/14 2100 AC 09/15 PO 2134 Furosemide 40 MG QAM 09/15 0900 AC 09/16 PO 0756 Methimazole 5 MG QTUES 09/17 0900 AC PO Methylprednisolone 40 MG Q12H 09/16 1800 AC IV Methylprednisolone 40 MG Q8 09/14 2200 DC 09/16 IV 0530 Oxycodone/ 1 TAB Q12P PRN 09/14 1900 AC 09/16 Acetaminophen PO 1110 Polyethylene Glycol 17 GM DAILY PRN 09/16 0900 AC 09/16 PO 0915 Sacubitril/Valsartan 1 TAB BID 09/14 2100 AC 09/16 PO 0756 Senna/Docusate Sodium 2 TAB DAILY PRN 09/16 0900 AC 09/16 PO 0919 Spironolactone 25 MG QAM 09/15 0900 AC 09/16 PO 0756 Tiotropium [place] 1 PUF QAM 09/15 0900 AC 09/16 INH 0757 Results Last 48 Hrs of Labs/Mics: Laboratory Tests 09/16/17 0702: Anion Gap 11, Estimated GFR > 60, BUN/Creatinine Ratio 40.0 H, Magnesium 2.6 H 09/15/17 0605: Anion Gap 14, Estimated GFR > 60, BUN/Creatinine Ratio 40.9 H, Total Bilirubin 0.9, CBC w Diff NO MAN DIFF REQ, RBC 4.76, MCV 75.2 L, MCH 24.2 L, MCHC 32.2 L, RDW 16.4 H, MPV 11.0 H, Gran % 90.8 H, Lymphocytes % 5.9 L, Monocytes % 3.3, Eosinophils % 0, Basophils % 0, Absolute Granulocytes 8.6 H, Absolute Lymphocytes 0.6 L, Absolute Monocytes 0.3, Absolute Eosinophils 0, Absolute Basophils 0 09/14/17 2215: Troponin I 0.05 09/14/17 1625: Troponin I 0.07 Recent Imaging Studies: telemetry: Personally reviewed. Ventricularly paced CXR (09/15/2017) - No acute abnormality of the chest. Assessment/Plan Assessment/Plan 1. CAD status post CABG in 1998 2. 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 Hypertension 4. Hyperlipidemia 5. COPD/asthma 6. Obesity 7. Borderline DM 8. Hyperthyroidism 9. Ventricular tachycardia on amiodarone Patient is currently able to ambulate comfortably in the hallway, and appears clinically euvolemic on exam. As per patient he had been consuming increased amounts of liquids prior to admission; this may have been etiology of his decompensation. Heart rate is at goal. Blood pressure is stable. Would continue with current medication regimen. Patient should continue with previous dose of p.o. Lasix at home. Please ensure that this patient follows up in our office within 1 week of discharge. Continue telemetry? Yes
[2017-09-16 14:16] VITALS: BP 98/48
[2017-09-16 21:37] VITALS: BP 108/58
[2017-09-17 06:22] VITALS: BP 92/68
--- NOTE | 2017-09-17 07:07 | PN- Housestaff ---
Vivek Banda 09/17/17 0707: Subjective Follow-up For: COPD-Day 4 antibiotics/oral prednisone day 2 CHF-Systolic Dysfunction Tele-Events Since Last Visit: S/D Pacing, 60HR Subjective: Patient seen and examined at bedside this morning. Patient sitting in chair, in no acute distress. Patient states she feels much better today. Patient currently on day 2 of oral prednisone. Saturating well on room air. Patient claims he passed a bowel movement yesterday after bowel regimen was given. No other complaints at this time. Will discharge patient today. Review of Systems Constitutional: Denies: see HPI. Objective Last 24 Hrs of Vital Signs/I&O Vital Signs Date Time Temp Pulse Resp B/P B/P Pulse O2 O2 Flow FiO2 Mean Ox Delivery Rate 09/17 0622 97.9 53 20 92/68 97 09/16 2217 62 98/60 09/16 2137 97.9 60 20 108/58 95 09/16 2018 95 Room Air Room Air 09/16 1616 82 98/48 09/16 1416 97.1 51 20 98/48 94 Room Air 09/16 0810 95 Room Air 09/16 0800 95 09/16 0756 104/58 Intake & Output 09/17 0800 09/17 0000 09/16 1600 Intake Total 120 120 400 Output Total 1300 Balance 120 120 -900 Intake, Oral 120 120 400 Output, Urine 1300 Patient 236 lb Weight Physical Exam General Appearance: Alert, Oriented X3, Cooperative Skin: No Rashes, No Breakdown HEENT: PERRLA, EOMI, Mucous Membr. moist/pink Cardiovascular: Regular Rate, Normal S1, Normal S2, AICD in place Lungs: Clear to Auscultation, Normal Air Movement Abdomen: Normal Bowel Sounds, Soft, No Tenderness Neurological: Normal Speech, Strength at 5/5 X4 Ext, Normal Tone, Cranial Nerves 3-12 NL, Reflexes 2+ Extremities: No Clubbing, No Cyanosis, +2 pitting edema in left lower extremity; chronic; Vascular: Normal Pulses, Pulses Symmetrical Current Medications: Current Medications Sig/Marcelo Start time Last Medication Dose Route Stop Time Status Admin Acetaminophen 650 MG Q4P PRN 09/16 1115 AC PO Acetaminophen 325 MG ONCE ONE 09/16 1015 DC 09/16 PO 09/16 1016 1022 Acetaminophen 1,000 MG Q12P PRN 09/14 1900 AC IV Acetaminophen 325 MG Q6P PRN 09/14 1845 AC 09/16 PO 0930 Albuterol Sulfate 3 ML Q4-PRN PRN 09/14 1715 AC INH Albuterol Sulfate 2 PUF Q4-6 PRN PRN 09/14 1645 AC INH Amiodarone HCl 200 MG 5PM 09/15 1700 AC 09/16 PO 1616 Aspirin Buffered 81 MG DAILY 09/14 1253 AC 09/16 PO 0756 Atorvastatin Calcium 80 MG 1700 09/14 1700 AC 09/16 PO 1616 Azithromycin 250 MG Q24H 09/15 1800 AC 09/16 PO 1616 Budesonide/ 2 PUF BID 09/14 2100 AC 09/16 Formoterol Fumarate INH 2208 Carvedilol 12.5 MG BID 09/14 2100 AC 09/16 PO 2217 Cholecalciferol 1,000 IU BID 09/14 2100 AC 09/16 PO 2209 Enoxaparin Sodium 40 MG DAILY@1600 09/15 1600 AC 09/16 SC 1615 Ezetimibe 10 MG QPM 09/14 2100 AC 09/16 PO 2209 Furosemide 40 MG QAM 09/15 0900 AC 09/16 PO 0756 Guaifenesin 600 MG Q12 09/16 2100 AC 09/16 PO 2206 Methimazole 5 MG QTUES 09/17 0900 AC PO Methylprednisolone 40 MG Q12H 09/16 1800 CAN IV Methylprednisolone 40 MG Q8 09/14 2200 DC 09/16 IV 0530 Oxycodone/ 1 TAB Q12P PRN 09/14 1900 AC 09/16 Acetaminophen PO 1110 Polyethylene Glycol 17 GM DAILY PRN 09/16 0900 AC 09/16 PO 0915 Prednisone 40 MG DAILY 09/17 0900 AC PO Sacubitril/Valsartan 1 TAB BID 09/14 2100 AC 09/16 PO 2207 Senna/Docusate Sodium 2 TAB DAILY PRN 09/16 0900 AC 09/16 PO 0919 Spironolactone 25 MG QAM 09/15 0900 AC 09/16 PO 0756 Tiotropium [place] 1 PUF QAM 09/15 0900 AC 09/16 INH 0757 Last 24 Hrs of Lab/Davie Results Last 24 Hrs of Labs/Mics: Laboratory Tests 09/17/17 0617: Sodium Pending, Potassium Pending, Chloride Pending, Carbon Dioxide Pending, Anion Gap Pending, BUN Pending, Creatinine Pending, BUN/Creatinine Ratio Pending , CBC w Diff Pending, WBC Pending, RBC Pending, Hgb Pending, Hct Pending, MCV Pending, MCH Pending, MCHC Pending, RDW Pending, Plt Count Pending, MPV Pending Assessment/Plan Assessment: Patient is 66-year-old male past medical history of COPD and asthma coronary disease status post CABG 1998, AICD, stent placement, hypertension, hyperlipidemia, diverticulosis, JOSÉ MIGUEL ON nocturnal CPAP, hypothyroidism presented to the ED on 09/14/17 complaining of shortness of breath. Patient had a course of prednisone from his primary care doctor Dr. gil. On morning of admission patient did not feel much relief and was unable to breathe. Patient unable to lay flat requiring 2 pillows at night to sleep. Patient presented with difficulty with climbing stairs at home. Vital signs stable on admission. Paced rhythm on EKG. Chest x-ray in the ED was negative for any pleural effusions. Elevated Pro BNP, high normal WBC count with left shift, elevated BUN /cr, negative troponins. Patient switched to oral prednisone. Patient clear for discharge today. Problem List: 1. COPD Exacerbation-switched to oral prednisone 2. Acute on Chronic CHF exacerbation 3. Hyperthyroidism COPD Exacerbation * Day 2 oral prednisone 40mg * Day 4 Azithromycin * Clear for discharge today. Follow up outpatient with Dr. Weinstein. Acute on Chronic CHF exacerbation * ECHO: 20-25% * PO Lasix 40mg * Sprinolactone 25 mg PO daily * Monitor Ins/Outs * Carvedilol 12.5 mg BID * Continue current regimen. Follow up outpatient accordingly. Hyperthyroidism * continue patietns home Methimazole 5mg PO Code Status: Full Code DVT PPX: Lovenox 40mg Diet: Heart Healthy Diet Problem List: 1. CHF (congestive heart failure) 2. COPD (chronic obstructive pulmonary disease) Pain Ratin Pain Location: denies pain today Pain Goal: Remain pain free Pain Plan: as per pain pathway Tomorrow's Labs & Rationales: Pending discharge FelipeGina 09/17/17 1225: Attending Review Statement Attending Statement Attending MD Statement: examined this patient, discuss w/resident/PA/ZUMBA INSTRUCTOR, agreed w/resident/PA/ZUMBA INSTRUCTOR, reviewed EMR data (avail), discussed with nursing, discussed with case mgmt Attending Assessment/Plan: Pt being dced today on po prednisone taper for his acute copd exacerbation. Clarification of admission diagnosis- pt did not have acute hypoxic / hypercapneic resp failure at admission. see dc summary for more details. Pt was advised to loose weight in view of his JOSÉ MIGUEL and both obstructive and restrictive lung disease. d/w pt the care plan.
[2017-09-17 07:39] LABS: ABSOLUTE BASOPHIL COUNT 0 /CUMM (0.0-0.2); ABSOLUTE EOSINOPHIL COUNT 0 /CUMM (0.0-0.7); ABSOLUTE GRANULOCYTE CT 11.3 /CUMM (1.4-6.5); ABSOLUTE LYMPH COUNT 0.7 /CUMM (1.2-3.4); BASOPHIL % 0.3 % (0.0-2.0); EOSINOPHIL % 0 % (0-5); HEMATOCRIT 36.7 % (42-52); MEAN CORPUSCULAR HGB 23.8 PG (27.0-31.0); MEAN CORPUSCULAR HGB CONC 31.8 G/DL (33.0-37.0); MEAN PLATELET VOLUME 10.4 FL (7.4-10.4); RBC DISTRIBUTION WIDTH 16.4 % (11.5-14.5); RED BLOOD CELL CT 4.89 /CUMM (4.70-6.10); WHITE BLOOD CELL COUNT 13.1 /CUMM (4.8-10.8)
[2017-09-17 08:27] VITALS: BP 102/64
--- NOTE | 2017-09-17 08:29 | PN- Pulmonary ---
Subjective HPI/Critical Care Issues: The patient is awake and alert. He is ambulating well, off oxygen. He feels well enough to go home. He slept well. He offers no new complaints today. He continues to have chronic dyspnea on exertion however once again this is better since admission and with therapy. Objective Current Medications: Current Medications Sig/Marcelo Start time Last Medication Dose Route Stop Time Status Admin Acetaminophen 650 MG Q4P PRN 09/16 1115 AC PO Acetaminophen 325 MG ONCE ONE 09/16 1015 DC 09/16 PO 09/16 1016 1022 Acetaminophen 1,000 MG Q12P PRN 09/14 1900 AC IV Acetaminophen 325 MG Q6P PRN 09/14 1845 AC 09/16 PO 0930 Albuterol Sulfate 3 ML Q4-PRN PRN 09/14 1715 AC INH Albuterol Sulfate 2 PUF Q4-6 PRN PRN 09/14 1645 AC INH Amiodarone HCl 200 MG 5PM 09/15 1700 AC 09/16 PO 1616 Aspirin Buffered 81 MG DAILY 09/14 1253 AC 09/16 PO 0756 Atorvastatin Calcium 80 MG 1700 09/14 1700 AC 09/16 PO 1616 Azithromycin 250 MG Q24H 09/15 1800 AC 09/16 PO 1616 Budesonide/ 2 PUF BID 09/14 2100 AC 09/16 Formoterol Fumarate INH 2208 Carvedilol 12.5 MG BID 09/14 2100 AC 09/16 PO 2217 Cholecalciferol 1,000 IU BID 09/14 2100 AC 09/16 PO 2209 Enoxaparin Sodium 40 MG DAILY@1600 09/15 1600 AC 09/16 SC 1615 Ezetimibe 10 MG QPM 09/14 2100 AC 09/16 PO 2209 Furosemide 40 MG QAM 09/15 0900 AC 09/16 PO 0756 Guaifenesin 600 MG Q12 09/16 2100 AC 09/16 PO 2206 Methimazole 5 MG QTUES 09/17 09 AC PO Methylprednisolone 40 MG Q12H 09/16 1800 CAN IV Methylprednisolone 40 MG Q8 09/14 2200 DC 09/16 IV 0530 Oxycodone/ 1 TAB Q12P PRN 09/14 1900 AC 09/16 Acetaminophen PO 1110 Polyethylene Glycol 17 GM DAILY PRN 09/16 0900 AC 09/16 PO 0915 Prednisone 40 MG DAILY 09/17 0900 AC PO Sacubitril/Valsartan 1 TAB BID 09/14 2100 AC 09/16 PO 2207 Senna/Docusate Sodium 2 TAB DAILY PRN 09/16 0900 AC 09/16 PO 0919 Spironolactone 25 MG QAM 09/15 0900 AC 09/16 PO 0756 Tiotropium [place] 1 PUF QAM 09/15 0900 AC 09/16 INH 0757 Vital Signs & I&O Last 24 Hrs of Vitals and I&O: Vital Signs Date Time Temp Pulse Resp B/P B/P Pulse O2 O2 Flow FiO2 Mean Ox Delivery Rate 09/17 08 97 Room Air 09/17 0622 97.9 53 20 92/68 97 09/16 2217 62 98/60 09/16 2137 97.9 60 20 108/58 95 09/16 2018 95 Room Air Room Air 09/16 1616 82 98/48 09/16 1416 97.1 51 20 98/48 94 Room Air Intake & Output 09/17 1600 09/17 0800 09/17 0000 Intake Total 120 120 Output Total Balance 120 120 Intake, Oral 120 120 Patient 236 lb Weight Exam General Appearance: no apparent distress, alert, awake, comfortable Head: atraumatic Neck: supple Respiratory: no respiratory distress, quiet respiration, decreased breath sounds Cardiovascular: regular rate/rhythm (S1 and S2, distant) Abdomen: normal bowel sounds, soft, non-tender, obese Extremities: no edema Skin: intact, normal color, warm/dry Results Last 24 Hrs of Lab Results: Laboratory Tests 09/17/17 0617: Anion Gap 9, Estimated GFR > 60, BUN/Creatinine Ratio 46.3 H, CBC w Diff Pending, WBC Pending, RBC Pending, Hgb Pending, Hct Pending, MCV Pending, MCH Pending, MCHC Pending, RDW Pending, Plt Count Pending, MPV Pending, Gran % Pending, Lymphocytes % Pending, Monocytes % Pending, Eosinophils % Pending, Basophils % Pending, Absolute Granulocytes Pending, Absolute Lymphocytes Pending , Absolute Monocytes Pending, Absolute Eosinophils Pending, Absolute Basophils Pending Impression/Plan Impression/Plan Impression/Plan: 1. AECOPD - patient is feeling much improved since admission. 2. Chronic restrictive and obstructive lung disease. Amiodarone toxicity has been considered however the patient has not had any significant deterioration in his lung function over time nor has he had any evidence of interstitial lung disease on serial CAT scans. He is being monitored on a yearly basis. There is no contraindication to the patient taking bronchodilators and being on amiodarone therapy simultaneously, which has been suggested to the patient in the past. Pulmonary function testing from 01/21/2017 demonstrated a combined restrictive and obstructive ventilatory defect, with a lung age of 114 years. The patient has evidence of small airways disease noting his FEF 2575 improves by 33% following bronchodilator therapy. The patient has mild to moderate obstructive lung disease along with restrictive lung disease which may be related to morbid obesity. He also has diminished diffusing capacity which is nonspecific but can be related to underlying CHF among other causes. (Please see PFTs attached to chart). 3. No evidence to suggest Bird fanciers lung/hypersensitivity pneumonitis (no evidence of granulomatous inflammation with progression to pulmonary fibrosis). 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 He has not had respiratory issues as a result of his contact with the birds, that I am aware of however the patient has been strongly encouraged to avoid this type of exposure given his history of chronic respiratory issues and complaints. 4. Severe obstructive sleep apnea, on nocturnal Bipap 17/13 cm H20. Compliant with BIPAP therapy (Please see compliance report on the chart). 5. Multiple cardiac issues including ventricular tachycardia, left bundle branch block, chronic systolic heart failure, ischemic cardiomyopathy, and defibrillator placement. 6. Morbid obesity with severe deconditioning. Recommendations: * Prednisone taper: 40 mg for 3 days, 30 mg for 3 days, 20 mg for 3 days, 10 mg for 3 days, 5 mg for 3 days then stop. * Complete 5 days of azithromycin. * Continue nebs/total respiratory care. * The patient will continue his home inhaler regimen upon discharge including Advair 250/50, one inhalation every 12 hours, and Spiriva Respimat inhaler 2.5 mcg, 2 puffs every morning. * The patient can continue his current inhaler regimen while receiving inpatient therapy. * Incentive spirometry. * Increase activity/continue to ambulate. * Follow-up cardiology recommendations. * Continue all supportive care. * The patient has a follow-up appointment in my office on 09/20/2017.
[2017-09-17 09:08] LABS: GRANULOCYTE % 86.5 % (42.2-75.2); PLATELET COUNT 185 /CUMM (130-400)
--- NOTE | 2017-09-17 09:41 | PN- Cardiology ---
Subjective Subjective: Patient feels well overall. He denies chest pain or shortness of breath. Review of Systems: Eyes no blurred or double vision Ears no deafness or ringing Nose and throat no recurrent sinusitis Lungs per history of present illness Heart per history of present illness Abdomen no nausea vomiting Musculoskeletal occasional muscle and joint pains Psych no anxiety or depression Neuro without recurrent headache or seizures Endocrine no heat or cold intolerance Objective Vital Signs and I&Os Vital Signs Date Time Temp Pulse Resp B/P B/P Pulse O2 O2 Flow FiO2 Mean Ox Delivery Rate 09/17 0827 67 102/64 09/17 0800 97 Room Air 09/17 0622 97.9 53 20 92/68 97 09/16 2217 62 98/60 09/16 2137 97.9 60 20 108/58 95 09/16 2018 95 Room Air Room Air 09/16 1616 82 98/48 09/16 1416 97.1 51 20 /48 94 Room Air Intake & Output 09/17 1600 09/17 0800 09/17 0000 09/16 1600 09/16 0800 09/16 0000 Intake Total 120 120 400 10 890 Output Total 1300 800 100 Balance 120 120 -900 -790 790 Intake, IV 10 10 Intake, Oral 120 120 400 880 Number 0 Bowel Movements Output, Urine 1300 800 100 Patient 236 lb 236 lb Weight Physical Exam: Patient is a well-developed well-nourished male appearing in no acute distress HEENT is unremarkable Neck is supple there is no JVD Lungs are clear Heart regular rhythm S1 and S2 are normal 2/6 systolic ejection murmur at right upper sternal border gallops or rubs Abdomen bowel sounds positive Extremities without edema Neuro without focal deficits Psych alert and oriented Current Medications: Current Medications Sig/Marcelo Start time Last Medication Dose Route Stop Time Status Admin Acetaminophen 650 MG Q4P PRN 09/16 1115 AC PO Acetaminophen 325 MG ONCE ONE 09/16 1015 DC 09/16 PO 09/16 1016 1022 Acetaminophen 1,000 MG Q12P PRN 09/14 1900 AC IV Acetaminophen 325 MG Q6P PRN 09/14 1845 AC 09/16 PO 0930 Albuterol Sulfate 3 ML Q4-PRN PRN 09/14 1715 AC INH Albuterol Sulfate 2 PUF Q4-6 PRN PRN 09/14 1645 AC INH Amiodarone HCl 200 MG 5PM 09/15 1700 AC 09/16 PO 1616 Aspirin Buffered 81 MG DAILY 09/14 1253 AC 09/17 PO 0827 Atorvastatin Calcium 80 MG 1700 09/14 1700 AC 09/16 PO 1616 Azithromycin 250 MG Q24H 09/15 1800 AC 09/16 PO 1616 Budesonide/ 2 PUF BID 09/14 2100 AC 09/17 Formoterol Fumarate INH 0829 Carvedilol 12.5 MG BID 09/14 2100 AC 09/17 PO 0827 Cholecalciferol 1,000 IU BID 09/14 2100 AC 09/17 PO 0829 Enoxaparin Sodium 40 MG DAILY@1600 09/15 1600 AC 09/16 SC 1615 Ezetimibe 10 MG QPM 09/14 2100 AC 09/16 PO 2209 Furosemide 40 MG QAM 09/15 0900 AC 09/17 PO 0828 Guaifenesin 600 MG Q12 09/16 2100 AC 09/17 PO 0828 Methimazole 5 MG QTUES 09/17 0900 AC 09/17 PO 0828 Methylprednisolone 40 MG Q12H 09/16 1800 CAN IV Oxycodone/ 1 TAB Q12P PRN 09/14 1900 AC 09/16 Acetaminophen PO 1110 Polyethylene Glycol 17 GM DAILY PRN 09/16 0900 AC 09/16 PO 0915 Prednisone 40 MG DAILY 09/17 0900 AC 09/17 PO 0828 Sacubitril/Valsartan 1 TAB BID 09/14 2100 AC 09/17 PO 0828 Senna/Docusate Sodium 2 TAB DAILY PRN 09/16 0900 AC 09/16 PO 0919 Spironolactone 25 MG QAM 09/15 0900 AC 09/17 PO 0827 Tiotropium [place] 1 PUF QAM 09/15 0900 AC 09/17 INH 0829 Results Last 48 Hrs of Labs/Mics: Laboratory Tests 09/17/17 0617: Anion Gap 9, Estimated GFR > 60, BUN/Creatinine Ratio 46.3 H, CBC w Diff NO MAN DIFF REQ, RBC 4.89, MCV 75.0 L, MCH 23.8 L, MCHC 31.8 L, RDW 16.4 H, MPV 10.4, Gran % 86.5 H, Lymphocytes % 5.4 L, Monocytes % 7.8, Eosinophils % 0, Basophils % 0.3, Absolute Granulocytes 11.3 H, Absolute Lymphocytes 0.7 L, Absolute Monocytes 1.0 H, Absolute Eosinophils 0, Absolute Basophils 0 09/16/17 0702: Anion Gap 11, Estimated GFR > 60, BUN/Creatinine Ratio 40.0 H, Magnesium 2.6 H Assessment/Plan Assessment/Plan 1. CAD status post CABG in 1998 2. 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 Hypertension 4. Hyperlipidemia 5. COPD/asthma 6. Obesity 7. Borderline DM 8. Hyperthyroidism 9. Ventricular tachycardia on amiodarone Recommendations 1. I had a long discussion with Dr. Morillo and the patient. Since he has no evidence of worsening pulmonary function on amiodarone it is doubtful that he has amiodarone toxicity. There is no evidence of bird fanciers lung either. He therefore will continue his current medications and be monitored closely as an outpatient. 2. I had a long discussion with him regarding weight loss and diet with salt restriction. We also discussed portion control. He states he does plan to start exercising. We also discussed fluid restrictions since he had liberal fluid intake prior to admission. 3. Plan is for discharge with outpatient follow-up in our office in approximately 1 week Greater than 20 minutes spent counseling. Continue telemetry? No
[2017-09-17] MEDS ORDERED: AZITHROMYCIN250 M1 PO ×2 (09:52→10:11)
[2017-09-17] MEDS ORDERED: PREDNISONE10 M2 PO ×2 (10:01→10:11)
--- NOTE | 2017-09-17 10:04 | Patient Discharge Instructions ---
Discharge Instructions General Discharge Information You were seen/treated for: COPD Exacerbation Acute on Chronic CHF Watch for these problems: Worsening chest pain, palpitations, shortness of breath Special Instructions: Follow-up appointment with Manager Monitoring Dr. Weinstein in office on 09/20/2017. Prednisone taper: 40 mg for 3 days, 30 mg for 3 days, 20 mg for 3 days, 10 mg for 3 days, 5 mg for 3 days then stop. Complete 5 days of azithromycin. Continue his home inhaler regimen upon discharge including Advair 250/50, one inhalation every 12 hours, and Spiriva Respimat inhaler 2.5 mcg, 2 puffs every morning. Follow up with PCP upon 1 week of discharge. Follow up with Welder Assembler within 1 week of discharge. Return to ED with worsening chest pain, palpitations, shortness of breath. Acute Coronary Syndrome Inclusion Criteria At DC or during hospital stay patient has or had the following: ACS DIAGNOSIS No Discharge Core Measures Meds if any: Prescribed or Continued at Discharge Meds if any: NOT Prescribed or Continued at Discharge Congestive Heart Failure Inclusion Criteria At DC or during hospital stay patient has or had the following: CHF DIAGNOSIS No Discharge Core Measures Meds if any: Prescribed or Continued at Discharge Meds if any: NOT Prescribed or Continued at Discharge Cerebrovascular accident Inclusion Criteria At DC or during hospital stay patient has or had the following: CVA/TIA Diagnosis No Discharge Core Measures Meds if any: Prescribed or Continued at Discharge Meds if any: NOT Prescribed or Continued at Discharge Venous thromboembolism Inclusion Criteria VTE Diagnosis No VTE Type NONE VTE Confirmed by (Test) NONE Discharge Core Measures - Per Current guidelines, there needs to be overlap - treatment for the first 5 days of Warfarin therapy. - If discharged on Warfarin prior to 5 days of - overlap therapy, the patient will need to be - assessed for post discharge needs including - *Post discharge parental anticoagulation - *Warfarin and/or parental anticoagulation education - *Follow up date to check INR post discharge At least 5 days overlap therapy as Inpatient No Meds if any: Prescribed or Continued at Discharge Note: Overlap Therapy is Warfarin and Anticoagulant Meds if any: NOT Prescribed or Continued at Discharge
--- NOTE | 2017-09-17 15:34 | Discharge Summary ---
Visit Information Visit Dates Admission Date: 09/14/17 Discharge Date: 09/17/17 Hospital Course Course Attending Physician: Felipe OWUSU,Gina Nur Primary Care Physician: Ted Hernandez MD Hospital Course: HOSPITAL COURSE: Mr. Hadley is a 66-year-old gentleman with a past medical history of CAD s/p CABG (1998), AICD, stent placement, HTN, HLD, asthma, diverticulosis, JOSÉ MIGUEL with nocturnal CPAP, hyperthyroidism, CHF-systolic dysfunction (EF: 20-25%) who presented to the ED complaining of dyspnea. The patient reports that prior to week of admission he visited the office of Dr Hernandez (PCP) and was started on prednisone. Patient did not get much relief from the therapy and subsequently woke up on morning of admission and felt he was "unable to breath". He has also been unable to lay flat. Requires two pillows to sleep at night. Patient was brought into the ED by his . The patient also reports over the last few days, he felt increasingly weak, and has had a more difficult time climbing stairs. He reports that he finds it difficult to climb the stairs at home with weakness in his lower extremities. He also complains of lower exteremity edema, more pronounced on the left leg, reports that a doppler of his lower extremity was recently done to rule out a DVT which was negative. PCP: Dr Hernandez. Garment Patternmaker: Dr Ibarra. Outbound Supervisor: Dr. Weinstein -- EMERGENCY DEPARTMENT: Vitals: 97.1, 70, 18, 111/74 EKG: Paced Rhythm TROPONINS: Negative CXRAY: IMPRESSION: 1. Evidence of pulmonary venous hypertension and at least moderate enlargement of the cardiomediastinal silhouette. 2. Superimposed ill-defined patchy airspace disease is noted best seen within the right hemithorax, may represent edema versus pneumonia or combination thereof. 3. No radiographic evidence of pleural effusion. ECHOCARDIOGRAM: FINDINGS Left Ventricle Moderate left ventricular dilatation. Left ventricle not well visualized. Severely reduced global left ventricular systolic function. Left ventricular ejection fraction is estimated at 25-30 %. ---- TELEMETRY ADMISSION: PROBLEM LIST: 1. COPD/ASTHMA/JOSÉ MIGUEL with EXACERBATION 2. HFrEF EF: 25% 3. H/O VT-chronic amiodarone therapy 4. HYPERTHYROIDISM 5. UNILATERAL LOWER EXTREMITY EDEMA (LEFT>RIGHT) COPD EXACERBATION Patient has a history of COPD, asthma, JOSÉ MIGUEL on sleep apnea. Patient follows up with Dr. Weinstein outpatient as creative services specialist. Admitted for exacerbation and monitored on telemetry given extensive cardiac history. Patient was started on IV methylprednisone 40mg q8 and tapered to q12 until oral prednisone was acceptable prior to discharge and patients stability. A course of Azithromycin was completed prior to patients discharge. Patient continued TRC/NEBS and incentive spirometer. Doppler of lower extremity given edema ruled out DVT. Amiodaraone toxicity was originally considered but patient did not have any significant deterioration of lung function over time or evidence of intersitital lung disease on CAT scans and monitored on yearly basis. Pulmonary function testing from 01/21/2017 demonstrated a combined restrictive and obstructive ventilatory defect, with a lung age of 114 years. The patient has evidence of small airways disease noting his FEF 2575 improves by 33% following bronchodilator therapy. The patient has mild to moderate obstructive lung disease along with restrictive lung disease which may be related to morbid obesity. He also has diminished diffusing capacity which is nonspecific but can be related to underlying CHF among other causes. No evidence to suggest Bird fanciers lung/hypersensitivity pneumonitis (no evidence of granulomatous inflammation with progression to pulmonary fibrosis). 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 He has not had respiratory issues as a result of his contact with the birds HFrEF Patient has a history of systolic heart failure with an ejection fraction of 20- 25% and AICD placement. Admited to telemetry for further monitoring. Serial troponins and EKGs were negative for ACS. Echocardiogram was repeated. Patients input/output was monitored. Resumed on home medicine lasix 40mg by mouth. Continued home medications. Vital signs were taken each shift along with monitoring CBC/BEP. DVT prophylaxis was given. Patient was seen by Dr. Cedeño who discussed case with pulmonolgist as well. Weight loss and diet and salt restriction was discussed along with portion control and exercising. Fluid restrictions discussed since patient had liberal fluid intake prior to admission. Patient advised to follow-up in office 1 week. HISTORY OF VT Continued patients amiodarone therapy 200mg daily. Patient continuously monitored on telemetry unit. HYPERTHYROIDISM Continued patient Methimazole 5mg. TSH 4.610 on admission and T4: 1.73. UNILATERAL LOWER EXTREMITY EDEMA Patient has a history of HFrEF and came to hospital with left lower extremity edema greater than the right. Venous doppler study was retreived to rule out DVT. No evidence of deep venous thrombosis was involved in th ele lower extremity. Code Status: Full Code DVT PPx: Lovenox Diet: Heart Healthy Diet Allergies: Coded Allergies: cat dander (SNEEZING, COUGHING, WHEEZING 09/14/17) Disposition Summary Disposition Principal Diagnosis: COPD Exacerbation Additional Diagnosis: HFrEF Discharge Disposition: home or self care Discharge Instructions General Discharge Information Code Status: Full Code Patient's Diet: Heart Healthy Patient's Activity: As tolerated Follow-Up Instructions/Appts: Follow up with PCP within 1 week of discharge. Follow up with Outbound Supervisor accordingly upon discharge. Follow up with Cardiology within 1 week of discharge. Continue home medications. Medications at Discharge Discharge Medications: Continue taking these medications: Fluticasone/Salmeterol (Advair 250-50 Diskus) 250 MCG-50 MCG/DOSE BLST.W.DEV 1 Puff Inhale through mouth TWICE DAILY Comments: DID NOT RECEIVE IN HOSPITAL Albuterol Sulfate (Ventolin Hfa) 90 MCG HFA.AER.AD 2 Puff Inhale through mouth As Directed as needed for COPD Comments: DID NOT RECEIVE IN HOSPITAL Tiotropium [place] (Spiriva Respimat) 2.5 MCG/ACTUATION MIST.INHAL 2 PUFF Inhale through mouth Every Morning Comments: Last Taken: 09/17/17 Time: 9:00 AM Sacubitril/Valsartan (Entresto 49 MG-51 MG Tablet) 49 MG-51 MG TABLET 1 Tablet ORAL TWICE DAILY Comments: Last Taken:09/17/17 Time: 9:00 AM Rosuvastatin Calcium (Crestor) 20 MG TABLET 1 Tablet ORAL Every night Comments: LIPITOR GIVEN 09/16/17 AT 4:00 PM Amiodarone (Cordarone) 200 MG TAB 1 Tablet ORAL DAILY Comments: Last Taken: 09/16/17 Time: 4:00 PM Ergocalciferol (Vitamin D2) (Vitamin D2) 50,000 UNIT CAPSULE 1 Capsule ORAL EVERY 2 WEEKS Comments: DID NOT RECEIVE IN HOSPITAL Ezetimibe (Zetia) 10 MG TABLET 1 Tablet ORAL Every night Comments: Last Taken: 09/16/17 Time: 10:00 PM Carvedilol (Carvedilol) 12.5 MG TABLET 1 Tablet ORAL TWICE DAILY Comments: Last Taken: 09/17/17 Time: 9:00 AM Spironolactone (Aldactone) 25 MG TABLET 1 Tablet ORAL Every Morning Comments: Last Taken: 09/17/17 Time: 9:00 AM Furosemide (Lasix) 40 MG TABLET 1 Tablet ORAL Every Morning Comments: Last Taken: 09/17/17 Time: 9:00 AM Methimazole (Methimazole) 10 MG TABLET 0.5 Tablet ORAL EVERY SATURDAY Comments: Last Taken: 09/17/17 Time: 9:00 AM Multivits,Ca,Min/Iron/FA/Lycop (Centrum Men's Tablet) 8 MG IRON-200 MCG-600 MCG TABLET 1 Tablet ORAL DAILY Aspirin (Ecotrin*) 81 MG TABLET.DR 1 Tablet ORAL DAILY Comments: Last Taken: 09/17/17 Time: 9:00 AM Cholecalciferol (Vitamin D3) (Vitamin D) 1,000 UNIT TABLET 1 Tablet ORAL TWICE DAILY Comments: Last Taken: 09/17/17 Time: 9:00 AM Fish Oil/Dha/Epa (Fish Oil 1,200 MG Fish Oil) 1,200 MG-144 MG-216 MG CAPSULE 1 Capsule ORAL THREE TIMES DAILY Comments: DID NOT RECEIVE IN HOSPITAL Start taking the following new medications: Azithromycin (Azithromycin) 250 MG TABLET 1 Tablet ORAL As Directed Qty = 1 No Refills Instructions: finish last day of azithromycin (1 tablet). Comments: Last Taken: 09/16/17 Time: 4:00 PM Prednisone (Prednisone) 10 MG TABLET 1 Tablet ORAL SEE INSTRUCTIONS Qty = 28 No Refills Instructions: 4pills 2days,3pills 3days,2pills 3days,1pill 3days,1/2pill 3d. Comments: Last Taken: 09/17/17 Time: 9:00 AM Copies To: Js OWUSU,Titus Akbar; Rogerio OWUSU,Luis Fernando Aguilera; Mary OWUSU,Ted Gtz; Davidson OWUSU,Yevgeniy Qureshi
== END 2017-09-17 11:45 | DRG 190 ==
LOC: ERH 09:57 → ERHI 12:03 → 1NO 12:03 → ENRESERV 13:04 → ENTRNSPT 14:02 → 1NO 15:04 → CMPTRNSPT 15:05 → 1NO 09-15 08:50 → ENPENDDIS 09-17 10:11 → 1NO 09-17 11:45
PROVIDERS: Emergency Medicine; Physical Medicine & Rehabilitation Pain Medicine; Student in an Organized Health Care Education/Training Program
PROC: 5A09357 Assistance with Respiratory Ventilation, Less than 24 Consecutive Hours, Continuous Positive Airway Pressure (ICD-10-PCS; principal; 2017-09-14)
DX: J44.1 Chronic obstructive pulmonary disease with (acute) exacerbation (principal); I50.23 Acute on chronic systolic (congestive) heart failure; I47.2 Ventricular tachycardia; I11.0 Hypertensive heart disease with heart failure; I25.5 Ischemic cardiomyopathy; E66.9 Obesity, unspecified; Z68.38 Body mass index [BMI] 38.0-38.9, adult; G47.33 Obstructive sleep apnea (adult) (pediatric); I25.10 Atherosclerotic heart disease of native coronary artery without angina pectoris; Z98.61 Coronary angioplasty status; Z95.0 Presence of cardiac pacemaker; Z79.82 Long term (current) use of aspirin; Z79.51 Long term (current) use of inhaled steroids; E78.5 Hyperlipidemia, unspecified; E05.90 Thyrotoxicosis, unspecified without thyrotoxic crisis or storm
CPT/HCPCS: 1NP; 36415; 36592; 71045; 71046; 81003; 82436; 87070; 93005; 93010; 93306; 96374; 96375; J0131; J0456; J1650; J1940; J2920; J2930; J3490; J7040